=== PATIENT | male | born 1960 | race Caucasian/White ===

== ENCOUNTER 2017-12-20 10:25 | Emergency (ER) | payer OTHER ==
[2017-12-20] MEDS: SOD CHLORIDE 0.9% 1,000 ML IV (12:16)
[2017-12-20] MEDS: ONDANSETRON 4 MG INJ IV (12:17)
[2017-12-20] MEDS: morphine 4 MG/ML VIAL IV (12:17)
[2017-12-20 12:24] LABS: ADD MAN DIFF? NO
[2017-12-20 12:25] LABS: WHITE BLOOD COUNT 6.8 10^3/ul (4.8-10.8)
[2017-12-20 12:25] LABS: BASOPHILS % 0.4 % (0.0-2.0); EOSINOPHILS # 0.1 10^3/ul (0.0-0.5); EOSINOPHILS % 0.7 % (0.0-7.0); HEMATOCRIT 39.8 % (42.0-52.0); HEMOGLOBIN 13.8 g/dl (14.0-18.0); IMMATURE GRANS #M 0.02 10^3/ul; IMMATURE GRANS % (M) 0.3 %; LYMPHOCYTES # 1.3 10^3/ul (0.8-2.9); LYMPHOCYTES % 18.4 % (15.0-51.0); MEAN CORPUSCULAR HEMOGLOBIN 29.8 pg (29.0-33.0); MEAN CORPUSCULAR HGB CONC 34.7 g/dl (32.0-37.0); MEAN PLATELET VOLUME 9.4 fl (7.4-10.4); MONOCYTE # 0.3 10^3/ul (0.3-0.9); MONOCYTES % 4.4 % (0.0-11.0); NEUTROPHIL # 5.2 10^3/ul (1.6-7.5); NEUTROPHILS % 75.8 % (39.0-77.0); PLATELET COUNT 238 10^3/UL (140-415); RED BLOOD COUNT 4.63 10^6/ul (4.70-6.10); RED CELL DISTRIBUTION WIDTH 13.6 % (11.5-14.5)
[2017-12-20 12:45] LABS: ALANINE AMINOTRANSFERASE 41 IU/L (13-69); ALBUMIN 4.5 g/dl (3.3-4.9); ALBUMIN/GLOBULIN RATIO 1.18; ALKALINE PHOSPHATASE 76 IU/L (42-121); ANION GAP 17 (8-16); ASPARTATE AMINO TRANSFERASE 33 IU/L (15-46); BILIRUBIN,INDIRECT 0.9 mg/dl (0-1.1); BILIRUBIN,TOTAL 0.9 mg/dl (0.2-1.3); BLOOD UREA NITROGEN 12 mg/dl (7-20); CALCIUM 9.6 mg/dl (8.4-10.2); CARBON DIOXIDE 25 mmol/L (21-31); CHLORIDE 98 mmol/L (97-110); CREATININE 0.61 mg/dl (0.61-1.24); GLUCOSE 233 mg/dl (70-220); LIPASE 602 U/L (23-300); POTASSIUM 4.3 mmol/L (3.5-5.1); SODIUM 136 mmol/L (135-144); TOTAL PROTEIN 8.3 g/dl (6.1-8.1)
[2017-12-20 12:57] LABS: TROPONIN-I < 0.010 ng/ml (0.000-0.120)
== END 2017-12-20 14:57 | disposition home or self-care (01) ==
LOC: E/R 10:25
DX: K85.20 Alcohol induced acute pancreatitis without necrosis or infection (principal); I10 Essential (primary) hypertension; E11.9 Type 2 diabetes mellitus without complications; F17.210 Nicotine dependence, cigarettes, uncomplicated; Z79.84 Long term (current) use of oral hypoglycemic drugs
CPT/HCPCS: 36415; 76705; 80053; 83690; 84484; 85025; 93005; 96361; 96374; 96375; 99285-25

== ENCOUNTER 2018-09-12 18:57 | Emergency (ER) | payer OTHER ==
[2018-09-12 20:05] LABS: ADD MAN DIFF? NO
[2018-09-12] MEDS: LIDOCAINE/MYLANTA 40 ML BTL PO (20:07)
[2018-09-12] MEDS: morphine 2 MG INJ IV (20:07)
[2018-09-12] MEDS: ONDANSETRON 4 MG INJ IV (20:07)
[2018-09-12 20:10] LABS: BASOPHIL # 0.1 10^3/ul (0.0-0.1); BASOPHILS % 1.4 % (0.0-2.0); EOSINOPHILS # 0.1 10^3/ul (0.0-0.5); EOSINOPHILS % 1.3 % (0.0-7.0); HEMOGLOBIN 14.6 g/dl (14.0-18.0); LYMPHOCYTES # 3.6 10^3/ul (0.8-2.9); LYMPHOCYTES % 50.8 % (15.0-51.0); MEAN CORPUSCULAR HEMOGLOBIN 28.3 pg (29.0-33.0); MEAN CORPUSCULAR HGB CONC 34.8 g/dl (32.0-37.0); MEAN CORPUSCULAR VOLUME 81.6 fl (82.0-101.0); MEAN PLATELET VOLUME 9.5 fl (7.4-10.4); MONOCYTE # 0.5 10^3/ul (0.3-0.9); MONOCYTES % 6.4 % (0.0-11.0); NEUTROPHIL # 2.8 10^3/ul (1.6-7.5); NEUTROPHILS % 39.7 % (39.0-77.0); PLATELET COUNT 350 10^3/UL (140-415); RED BLOOD COUNT 5.15 10^6/ul (4.70-6.10); RED CELL DISTRIBUTION WIDTH 12.7 % (11.5-14.5)
[2018-09-12 20:29] LABS: ALANINE AMINOTRANSFERASE 40 IU/L (13-69); ALBUMIN 4.7 g/dl (3.3-4.9); ALKALINE PHOSPHATASE 105 IU/L (42-121); ANION GAP 20 (5-13); ASPARTATE AMINO TRANSFERASE 69 IU/L (15-46); BILIRUBIN,INDIRECT 0.3 mg/dl (0-1.1); BILIRUBIN,TOTAL 0.3 mg/dl (0.2-1.3); CARBON DIOXIDE 21 mmol/L (21-31); CHLORIDE 96 mmol/L (97-110); CREATININE 0.94 mg/dl (0.61-1.24); Estimated GFR > 60 mL/min (>60); GLUCOSE 395 mg/dl (70-220); LIPASE 172 U/L (23-300); POTASSIUM 4.5 mmol/L (3.5-5.1); SODIUM 137 mmol/L (135-144); TOTAL PROTEIN 8.3 g/dl (6.1-8.1)
[2018-09-12 20:31] LABS: BLOOD UREA NITROGEN 17 mg/dl (7-20)
[2018-09-12] MEDS: morphine 4 MG/ML VIAL IV (21:37)
[2018-09-12] MEDS: INSULIN LISPRO 100 UNIT/ML VIAL SC (22:45)
[2018-09-12] MEDS ORDERED: ACCU-CHEK XX (23:00)
== END 2018-09-12 22:56 | disposition home or self-care (01) ==
LOC: E/R 18:57
DX: F10.10 Alcohol abuse, uncomplicated (principal); E11.65 Type 2 diabetes mellitus with hyperglycemia; I10 Essential (primary) hypertension; Z79.82 Long term (current) use of aspirin; Z79.84 Long term (current) use of oral hypoglycemic drugs; Z87.891 Personal history of nicotine dependence
CPT/HCPCS: 36415; 80053; 80307; 82962; 83690; 85025; 93005; 96372; 96374; 96375; 96376; 99284-25

== ENCOUNTER 2018-09-14 07:45 | Emergency (ER) | payer OTHER ==
[2018-09-14 09:00] LABS: ADD MAN DIFF? NO
[2018-09-14] MEDS: SOD CHLORIDE 0.9% 1,000 ML IV (09:02)
[2018-09-14] MEDS: ONDANSETRON 4 MG INJ IV (09:04)
[2018-09-14 09:07] LABS: WHITE BLOOD COUNT 7.2 10^3/ul (4.8-10.8)
[2018-09-14 09:07] LABS: BASOPHILS % 0.6 % (0.0-2.0); EOSINOPHILS # 0.1 10^3/ul (0.0-0.5); EOSINOPHILS % 1.9 % (0.0-7.0); HEMATOCRIT 39.3 % (42.0-52.0); HEMOGLOBIN 13.4 g/dl (14.0-18.0); LYMPHOCYTES # 1.1 10^3/ul (0.8-2.9); LYMPHOCYTES % 15.5 % (15.0-51.0); MEAN CORPUSCULAR HEMOGLOBIN 28.1 pg (29.0-33.0); MEAN CORPUSCULAR HGB CONC 34.1 g/dl (32.0-37.0); MEAN CORPUSCULAR VOLUME 82.4 fl (82.0-101.0); MEAN PLATELET VOLUME 9.5 fl (7.4-10.4); MONOCYTE # 0.4 10^3/ul (0.3-0.9); MONOCYTES % 5.4 % (0.0-11.0); NEUTROPHIL # 5.5 10^3/ul (1.6-7.5); NEUTROPHILS % 76.5 % (39.0-77.0); PLATELET COUNT 213 10^3/UL (140-415); RED BLOOD COUNT 4.77 10^6/ul (4.70-6.10); RED CELL DISTRIBUTION WIDTH 12.7 % (11.5-14.5)
[2018-09-14 09:19] LABS: MODE ROOM AIR; MetHgb Venous 0.2 %; Sample Type Blood venous; Site VENOUS LINE; Venous COHb 0.7 %; Venous Fraction OxyHgb 66.7 %; Venous Oxygen Sat 67.3 mmHG (55.0-75.0); Venous Total Hemglobin 13.7 g/dl
[2018-09-14 09:23] LABS: ANION GAP 10 (5-13); BLOOD UREA NITROGEN 19 mg/dl (7-20); CALCIUM 8.8 mg/dl (8.4-10.2); CARBON DIOXIDE 27 mmol/L (21-31); CHLORIDE 98 mmol/L (97-110); CREATININE 0.81 mg/dl (0.61-1.24); Estimated GFR > 60 mL/min (>60); GLUCOSE 257 mg/dl (70-220); MAGNESIUM 2.3 mg/dl (1.7-2.5); SODIUM 135 mmol/L (135-144)
[2018-09-14] MEDS: BELLADONNA/PHENOBARBITAL TAB PO (09:34)
[2018-09-14] MEDS: LIDOCAINE/MYLANTA 40 ML BTL PO (09:34)
[2018-09-14] MEDS: FAMOTIDINE 20 MG INJ IV (09:34)
[2018-09-14] MEDS: morphine 4 MG/ML VIAL IV ×2 (09:35→11:42)
[2018-09-14 10:02] LABS: ALANINE AMINOTRANSFERASE 50 IU/L (13-69); ALBUMIN 4.2 g/dl (3.3-4.9); ALKALINE PHOSPHATASE 99 IU/L (42-121); ASPARTATE AMINO TRANSFERASE 58 IU/L (15-46); BILIRUBIN,INDIRECT 0.7 mg/dl (0-1.1); BILIRUBIN,TOTAL 0.7 mg/dl (0.2-1.3); LIPASE 604 U/L (23-300); TOTAL PROTEIN 7.3 g/dl (6.1-8.1)
[2018-09-14 10:06] LABS: ETHANOL < 10.0 mg/dl (0-0)
== END 2018-09-14 12:37 | disposition home or self-care (01) ==
LOC: E/R 07:45
DX: D64.9 Anemia, unspecified (principal); I10 Essential (primary) hypertension; K85.20 Alcohol induced acute pancreatitis without necrosis or infection; E11.65 Type 2 diabetes mellitus with hyperglycemia; K83.8 Other specified diseases of biliary tract; Z79.4 Long term (current) use of insulin; Z79.82 Long term (current) use of aspirin
CPT/HCPCS: 36415; 71045; 76705; 80048; 80076; 80307; 82803; 82962; 83690; 83735; 84100; 85025; 96374; 96375; 96376; 99285-25

== ENCOUNTER 2018-10-10 05:44 | Emergency (ER) | payer OTHER ==
[2018-10-10] MEDS: KETOROLAC 30 MG INJ IV (06:40)
[2018-10-10] MEDS: ONDANSETRON 4 MG INJ IV (06:40)
[2018-10-10] MEDS: SOD CHLORIDE 0.9% 1,000 ML IV (06:44)
[2018-10-10 06:52] LABS: ADD MAN DIFF? NO
[2018-10-10 06:54] LABS: BASOPHIL # 0.1 10^3/ul (0.0-0.1); EOSINOPHILS # 0.1 10^3/ul (0.0-0.5); EOSINOPHILS % 0.7 % (0.0-7.0); HEMATOCRIT 42.1 % (42.0-52.0); HEMOGLOBIN 14.5 g/dl (14.0-18.0); LYMPHOCYTES # 1.8 10^3/ul (0.8-2.9); LYMPHOCYTES % 25.5 % (15.0-51.0); MEAN CORPUSCULAR HGB CONC 34.4 g/dl (32.0-37.0); MEAN CORPUSCULAR VOLUME 81.3 fl (82.0-101.0); MONOCYTE # 0.5 10^3/ul (0.3-0.9); MONOCYTES % 7.6 % (0.0-11.0); NEUTROPHIL # 4.6 10^3/ul (1.6-7.5); NEUTROPHILS % 64.9 % (39.0-77.0); PLATELET COUNT 272 10^3/UL (140-415); RED BLOOD COUNT 5.18 10^6/ul (4.70-6.10); RED CELL DISTRIBUTION WIDTH 13.2 % (11.5-14.5)
[2018-10-10 06:54] LABS: WHITE BLOOD COUNT 7.1 10^3/ul (4.8-10.8)
[2018-10-10 06:56] LABS: ADD UMIC NO; UR ASCORBIC ACID NEGATIVE (NEGATIVE); UR BILIRUBIN (Dip) NEGATIVE (NEGATIVE); UR BLOOD (Dip) NEGATIVE (NEGATIVE); UR CLARITY CLEAR (CLEAR); UR COLOR STRAW (YELLOW); UR GLUCOSE (Dip) 3+ mg/dL (NEGATIVE); UR KETONES (Dip) NEGATIVE (NEGATIVE); UR LEUKOCYTE ESTERASE (Dip) NEGATIVE Leu/ul (NEGATIVE); UR NITRITE (Dip) NEGATIVE (NEGATIVE); UR SPECIFIC GRAVITY (Dip) 1.005 (1.003-1.030); UR TOTAL PROTEIN (Dip) NEGATIVE (NEGATIVE); UR UROBILINOGEN (Dip) NEGATIVE (NEGATIVE)
[2018-10-10 07:18] LABS: ALANINE AMINOTRANSFERASE 30 IU/L (13-69); ALBUMIN 4.5 g/dl (3.3-4.9); ALBUMIN/GLOBULIN RATIO 1.36; ALKALINE PHOSPHATASE 83 IU/L (42-121); ANION GAP 17 (5-13); ASPARTATE AMINO TRANSFERASE 36 IU/L (15-46); BILIRUBIN,INDIRECT 0.5 mg/dl (0-1.1); BILIRUBIN,TOTAL 0.5 mg/dl (0.2-1.3); BLOOD UREA NITROGEN 13 mg/dl (7-20); CALCIUM 8.5 mg/dl (8.4-10.2); CARBON DIOXIDE 24 mmol/L (21-31); CHLORIDE 93 mmol/L (97-110); Estimated GFR > 60 mL/min (>60); GLUCOSE 285 mg/dl (70-220); LIPASE 36 U/L (23-300); POTASSIUM 4.1 mmol/L (3.5-5.1); SODIUM 134 mmol/L (135-144); TOTAL PROTEIN 7.8 g/dl (6.1-8.1)
[2018-10-10] MEDS: morphine 4 MG/ML VIAL IV (07:27)
[2018-10-10 07:30] LABS: TROPONIN-I < 0.012 ng/ml (0.000-0.120)
[2018-10-10] MEDS: IOHEXOL 300MG/ML 150 ML BTL (07:58)
[2018-10-10] MEDS: SOD CHLORIDE 0.9% 100 ML (07:58)
== END 2018-10-10 08:51 | disposition home or self-care (01) ==
LOC: FTE 05:44
DX: R10.13 Epigastric pain (principal); E11.9 Type 2 diabetes mellitus without complications; I10 Essential (primary) hypertension; Z79.4 Long term (current) use of insulin; Z79.82 Long term (current) use of aspirin
CPT/HCPCS: 36415; 74177; 76705; 80053; 81003; 82962; 83690; 84484; 85025; 93005; 96361; 96374; 96375; 99285-25

== ENCOUNTER 2018-10-30 06:40 | Emergency (ER) | payer OTHER ==
[2018-10-30] MEDS: LIDOCAINE/MYLANTA 40 ML BTL PO (07:08)
[2018-10-30] MEDS: morphine 4 MG/ML VIAL IV (07:08)
[2018-10-30] MEDS: ONDANSETRON 4 MG INJ IV (07:08)
[2018-10-30 07:11] LABS: ADD MAN DIFF? NO; BASOPHIL # 0.1 10^3/ul (0.0-0.1); BASOPHILS % 1.6 % (0.0-2.0); EOSINOPHILS # 0.1 10^3/ul (0.0-0.5); EOSINOPHILS % 1.1 % (0.0-7.0); HEMATOCRIT 41.7 % (42.0-52.0); HEMOGLOBIN 14.2 g/dl (14.0-18.0); LYMPHOCYTES # 2.8 10^3/ul (0.8-2.9); LYMPHOCYTES % 45.6 % (15.0-51.0); MEAN CORPUSCULAR HGB CONC 34.1 g/dl (32.0-37.0); MEAN CORPUSCULAR VOLUME 82.2 fl (82.0-101.0); MEAN PLATELET VOLUME 8.8 fl (7.4-10.4); MONOCYTE # 0.4 10^3/ul (0.3-0.9); MONOCYTES % 6.7 % (0.0-11.0); NEUTROPHIL # 2.7 10^3/ul (1.6-7.5); NEUTROPHILS % 44.5 % (39.0-77.0); PLATELET COUNT 339 10^3/UL (140-415); RED BLOOD COUNT 5.07 10^6/ul (4.70-6.10); RED CELL DISTRIBUTION WIDTH 13.2 % (11.5-14.5)
[2018-10-30 07:11] LABS: WHITE BLOOD COUNT 6.1 10^3/ul (4.8-10.8)
[2018-10-30 07:19] LABS: ALANINE AMINOTRANSFERASE 43 IU/L (13-69); ALBUMIN 4.6 g/dl (3.3-4.9); ALBUMIN/GLOBULIN RATIO 1.21; ALKALINE PHOSPHATASE 81 IU/L (42-121); ANION GAP 15 (5-13); ASPARTATE AMINO TRANSFERASE 61 IU/L (15-46); BILIRUBIN,INDIRECT 0.5 mg/dl (0-1.1); BILIRUBIN,TOTAL 0.5 mg/dl (0.2-1.3); BLOOD UREA NITROGEN 18 mg/dl (7-20); CALCIUM 8.7 mg/dl (8.4-10.2); CARBON DIOXIDE 23 mmol/L (21-31); CHLORIDE 99 mmol/L (97-110); CREATININE 1.03 mg/dl (0.61-1.24); Estimated GFR > 60 mL/min (>60); GLUCOSE 229 mg/dl (70-220); LIPASE 67 U/L (23-300); POTASSIUM 4.1 mmol/L (3.5-5.1); SODIUM 137 mmol/L (135-144); TOTAL PROTEIN 8.4 g/dl (6.1-8.1)
[2018-10-30] MEDS: PANTOPRAZOLE 40 MG INJ IV (07:23)
[2018-10-30 07:30] LABS: TROPONIN-I < 0.012 ng/ml (0.000-0.120)
[2018-10-30] MEDS: HYDROmorphONE 2 MG/ML SYG IV (07:56)
[2018-10-30 08:11] LABS: ADD UMIC NO; UR ASCORBIC ACID NEGATIVE (NEGATIVE); UR BILIRUBIN (Dip) NEGATIVE (NEGATIVE); UR BLOOD (Dip) NEGATIVE (NEGATIVE); UR CLARITY CLEAR (CLEAR); UR COLOR COLORLESS (YELLOW); UR GLUCOSE (Dip) 1+ mg/dL (NEGATIVE); UR KETONES (Dip) NEGATIVE (NEGATIVE); UR LEUKOCYTE ESTERASE (Dip) NEGATIVE Leu/ul (NEGATIVE); UR NITRITE (Dip) NEGATIVE (NEGATIVE); UR RBC 0 /HPF (0-5); UR SPECIFIC GRAVITY (Dip) 1.003 (1.003-1.030); UR TOTAL PROTEIN (Dip) NEGATIVE (NEGATIVE); UR UROBILINOGEN (Dip) NEGATIVE (NEGATIVE); UR WBC 0 /HPF (0-5)
== END 2018-10-30 08:17 | disposition home or self-care (01) ==
LOC: E/R 06:40
DX: R10.13 Epigastric pain (principal); I10 Essential (primary) hypertension; E11.9 Type 2 diabetes mellitus without complications; F10.10 Alcohol abuse, uncomplicated; Z79.4 Long term (current) use of insulin; Z79.82 Long term (current) use of aspirin
CPT/HCPCS: 36415; 80053; 81003; 83690; 84484; 85025; 93005; 96374; 96375; 99284-25

== ENCOUNTER 2018-10-30 17:09 | Emergency (ER) | payer OTHER ==
[2018-10-30] MEDS: LIDOCAINE/MYLANTA 40 ML BTL PO (19:11)
[2018-10-30] MEDS: FAMOTIDINE 20 MG TAB PO (19:12)
[2018-10-30] MEDS: METOCLOPRAMIDE 10 MG INJ IV (19:12)
== END 2018-10-30 20:38 | disposition home or self-care (01) ==
LOC: E/R 17:09
DX: R10.13 Epigastric pain (principal); I10 Essential (primary) hypertension; E11.9 Type 2 diabetes mellitus without complications; R11.2 Nausea with vomiting, unspecified; Z79.82 Long term (current) use of aspirin; Z79.84 Long term (current) use of oral hypoglycemic drugs
CPT/HCPCS: 96374; 99284-25

== ENCOUNTER → 2018-11-17 | Emergency (ER) | payer OTHER ==
[2018-11-17 12:43] LABS: ADD MAN DIFF? NO
[2018-11-17 12:45] LABS: BASOPHIL # 0.1 10^3/ul (0.0-0.1); BASOPHILS % 1.9 % (0.0-2.0); EOSINOPHILS % 0.6 % (0.0-7.0); HEMATOCRIT 43.8 % (42.0-52.0); HEMOGLOBIN 15.1 g/dl (14.0-18.0); LYMPHOCYTES # 2.7 10^3/ul (0.8-2.9); LYMPHOCYTES % 50.1 % (15.0-51.0); MEAN CORPUSCULAR HEMOGLOBIN 28.3 pg (29.0-33.0); MEAN CORPUSCULAR HGB CONC 34.5 g/dl (32.0-37.0); MEAN CORPUSCULAR VOLUME 82.2 fl (82.0-101.0); MEAN PLATELET VOLUME 8.8 fl (7.4-10.4); MONOCYTE # 0.4 10^3/ul (0.3-0.9); MONOCYTES % 6.7 % (0.0-11.0); NEUTROPHIL # 2.2 10^3/ul (1.6-7.5); NEUTROPHILS % 40.1 % (39.0-77.0); PLATELET COUNT 309 10^3/UL (140-415); RED BLOOD COUNT 5.33 10^6/ul (4.70-6.10); RED CELL DISTRIBUTION WIDTH 13.7 % (11.5-14.5)
[2018-11-17 12:45] LABS: WHITE BLOOD COUNT 5.4 10^3/ul (4.8-10.8)
[2018-11-17] MEDS: HYDROmorphONE 1 MG/ML SYG IV ×2 (12:49→16:38)
[2018-11-17] MEDS: ONDANSETRON 4 MG INJ IV ×3 (12:49→16:38)
[2018-11-17] MEDS: SOD CHLORIDE 0.9% 1,000 ML IV (12:49)
[2018-11-17 12:50] LABS: ALANINE AMINOTRANSFERASE 25 IU/L (13-69); ALBUMIN 4.9 g/dl (3.3-4.9); ALBUMIN/GLOBULIN RATIO 1.25; ALKALINE PHOSPHATASE 74 IU/L (42-121); ANION GAP 17 (5-13); ASPARTATE AMINO TRANSFERASE 39 IU/L (15-46); BILIRUBIN,INDIRECT 0.4 mg/dl (0-1.1); BILIRUBIN,TOTAL 0.4 mg/dl (0.2-1.3); BLOOD UREA NITROGEN 12 mg/dl (7-20); CALCIUM 9.2 mg/dl (8.4-10.2); CARBON DIOXIDE 25 mmol/L (21-31); CHLORIDE 101 mmol/L (97-110); Estimated GFR > 60 mL/min (>60); GLUCOSE 162 mg/dl (70-220); LIPASE 56 U/L (23-300); POTASSIUM 4.3 mmol/L (3.5-5.1); SODIUM 143 mmol/L (135-144); TOTAL PROTEIN 8.8 g/dl (6.1-8.1)
[2018-11-17] MEDS: SOD CHLORIDE 0.9% 100 ML (15:08)
[2018-11-17] MEDS: IOHEXOL 300MG/ML 150 ML BTL (15:09)
[2018-11-17] MEDS: LIDOCAINE/MYLANTA 40 ML BTL PO (16:38)
[2018-11-17] MEDS: BELLADONNA/PHENOBARBITAL TAB PO (16:38)
== END | disposition home or self-care (01) ==
LOC: E/R 11:25
DX: R10.13 Epigastric pain (principal); I10 Essential (primary) hypertension; E11.9 Type 2 diabetes mellitus without complications; R11.0 Nausea; Z79.82 Long term (current) use of aspirin; Z79.4 Long term (current) use of insulin
CPT/HCPCS: 36415; 74177; 76705; 80053; 83690; 85025; 96374; 96375; 96376; 99285-25

== ENCOUNTER 2018-12-05 12:54 | Emergency (ER) | payer OTHER ==
[2018-12-05 13:31] LABS: ADD MAN DIFF? NO
[2018-12-05 13:32] LABS: WHITE BLOOD COUNT 9.7 10^3/ul (4.8-10.8)
[2018-12-05 13:32] LABS: BASOPHIL # 0.1 10^3/ul (0.0-0.1); BASOPHILS % 0.7 % (0.0-2.0); HEMOGLOBIN 15.8 g/dl (14.0-18.0); LYMPHOCYTES # 1.4 10^3/ul (0.8-2.9); LYMPHOCYTES % 14.3 % (15.0-51.0); MEAN CORPUSCULAR HEMOGLOBIN 28.8 pg (29.0-33.0); MEAN CORPUSCULAR HGB CONC 35.1 g/dl (32.0-37.0); MEAN PLATELET VOLUME 9.1 fl (7.4-10.4); MONOCYTE # 0.5 10^3/ul (0.3-0.9); MONOCYTES % 4.7 % (0.0-11.0); NEUTROPHIL # 7.7 10^3/ul (1.6-7.5); PLATELET COUNT 279 10^3/UL (140-415); RED BLOOD COUNT 5.49 10^6/ul (4.70-6.10); RED CELL DISTRIBUTION WIDTH 13.6 % (11.5-14.5)
[2018-12-05] MEDS: ONDANSETRON 4 MG INJ IV (13:46)
[2018-12-05] MEDS: morphine 4 MG/ML VIAL IV (13:48)
[2018-12-05 14:01] LABS: ALANINE AMINOTRANSFERASE 245 IU/L (13-69); ALBUMIN 4.3 g/dl (3.3-4.9); ALBUMIN/GLOBULIN RATIO 1.19; ALKALINE PHOSPHATASE 112 IU/L (42-121); ANION GAP 16 (5-13); ASPARTATE AMINO TRANSFERASE 441 IU/L (15-46); BILIRUBIN,INDIRECT 1.2 mg/dl (0-1.1); BILIRUBIN,TOTAL 1.2 mg/dl (0.2-1.3); BLOOD UREA NITROGEN 17 mg/dl (7-20); CALCIUM 8.2 mg/dl (8.4-10.2); CARBON DIOXIDE 21 mmol/L (21-31); CHLORIDE 95 mmol/L (97-110); CREATININE 0.83 mg/dl (0.61-1.24); Estimated GFR > 60 mL/min (>60); GLUCOSE 265 mg/dl (70-220); LIPASE 203 U/L (23-300); POTASSIUM 4.4 mmol/L (3.5-5.1); SODIUM 132 mmol/L (135-144); TOTAL PROTEIN 7.9 g/dl (6.1-8.1)
[2018-12-05] MEDS: LIDOCAINE/MYLANTA 40 ML BTL PO (14:07)
[2018-12-05] MEDS: PANTOPRAZOLE 40 MG INJ IV (14:07)
[2018-12-05] MEDS: LACTATED RINGER'S 1,000 ML IV (14:07)
[2018-12-05] MEDS: CHLORPROMAZINE 25 MG INJ IM (14:07)
[2018-12-05] MEDS: SOD CHLORIDE 0.9% 1,000 ML IV (14:08)
[2018-12-05 14:10] LABS: TROPONIN-I < 0.012 ng/ml (0.000-0.120)
[2018-12-05 15:44] LABS: INR 0.93; PARTIAL THROMBOPLASTIN TIME 28.7 Sec (23.0-35.0); PROTIME 12.6 Sec (11.9-14.9)
[2018-12-05] MEDS: HYDROCODONE/APAP (5/325) TAB PO (15:55)
== END 2018-12-05 16:16 | disposition home or self-care (01) ==
LOC: E/R 12:54
DX: K70.10 Alcoholic hepatitis without ascites (principal); K85.20 Alcohol induced acute pancreatitis without necrosis or infection; I10 Essential (primary) hypertension; E11.9 Type 2 diabetes mellitus without complications; Z79.4 Long term (current) use of insulin; Z79.82 Long term (current) use of aspirin
CPT/HCPCS: 36415; 71045; 76705; 80053; 80307; 82962; 83690; 84484; 85025; 85610; 85730; 93005; 96372; 96374; 96375; 99285-25

== ENCOUNTER 2018-12-06 06:33 | Inpatient (IN) | payer OTHER ==
[2018-12-06 07:10] LABS: ADD MAN DIFF? NO
[2018-12-06 07:12] LABS: BASOPHILS % 0.4 % (0.0-2.0); HEMATOCRIT 41.6 % (42.0-52.0); HEMOGLOBIN 14.2 g/dl (14.0-18.0); LYMPHOCYTES # 0.8 10^3/ul (0.8-2.9); LYMPHOCYTES % 9.5 % (15.0-51.0); MEAN CORPUSCULAR HEMOGLOBIN 28.7 pg (29.0-33.0); MEAN CORPUSCULAR HGB CONC 34.1 g/dl (32.0-37.0); MEAN CORPUSCULAR VOLUME 84.2 fl (82.0-101.0); MEAN PLATELET VOLUME 9.3 fl (7.4-10.4); MONOCYTE # 0.4 10^3/ul (0.3-0.9); MONOCYTES % 5.3 % (0.0-11.0); NEUTROPHIL # 6.7 10^3/ul (1.6-7.5); NEUTROPHILS % 84.3 % (39.0-77.0); PLATELET COUNT 163 10^3/UL (140-415); RED BLOOD COUNT 4.94 10^6/ul (4.70-6.10)
[2018-12-06] MEDS: ONDANSETRON 4 MG INJ IV ×2 (07:14→12:23)
[2018-12-06] MEDS: morphine 4 MG/ML VIAL IV ×3 (07:14→09:41)
[2018-12-06] MEDS: FAMOTIDINE 20 MG INJ IV (07:14)
[2018-12-06] MEDS: SOD CHLORIDE 0.9% 1,000 ML IV ×4 (07:15→20:22)
[2018-12-06 07:33] LABS: ALANINE AMINOTRANSFERASE 192 IU/L (13-69); ALBUMIN 3.7 g/dl (3.3-4.9); ALBUMIN/GLOBULIN RATIO 1.12; ALKALINE PHOSPHATASE 124 IU/L (42-121); ANION GAP 12 (5-13); ASPARTATE AMINO TRANSFERASE 190 IU/L (15-46); BILIRUBIN,INDIRECT 2.4 mg/dl (0-1.1); BILIRUBIN,TOTAL 2.5 mg/dl (0.2-1.3); BLOOD UREA NITROGEN 13 mg/dl (7-20); CALCIUM 7.8 mg/dl (8.4-10.2); CARBON DIOXIDE 22 mmol/L (21-31); CHLORIDE 98 mmol/L (97-110); CREATININE 0.78 mg/dl (0.61-1.24); Estimated GFR > 60 mL/min (>60); GLUCOSE 239 mg/dl (70-220); POTASSIUM 3.8 mmol/L (3.5-5.1); SODIUM 132 mmol/L (135-144)
[2018-12-06 07:47] LABS: LIPASE 3071 U/L (23-300)
[2018-12-06] MEDS: IOHEXOL 300MG/ML 150 ML BTL (08:22)
[2018-12-06] MEDS: SOD CHLORIDE 0.9% 100 ML (08:22)
[2018-12-06] MEDS ORDERED: ACETAMINOPHEN 325 MG TAB PO (09:00)
[2018-12-06] MEDS ORDERED: MAGNESIUM HYDROXIDE 30ML CUP PO (11:30)
[2018-12-06] MEDS ORDERED: NACL 0.9% 3 ML SYG IV (11:30)
[2018-12-06] MEDS ORDERED: ONDANSETRON 4 MG INJ IV ×2 (11:30→16:30)
[2018-12-06] MEDS ORDERED: BISACODYL 10 MG SUPP PR (11:30)
[2018-12-06] MEDS: HYDROmorphONE 1 MG/ML SYG IV ×3 (12:24→23:46)
[2018-12-06] MEDS: GABAPENTIN 300 MG CAP PO ×2 (14:45→20:22)
[2018-12-06] MEDS: MEROPENEM 1 GM/50ML(PMX) 50 ML IVPB ×2 (14:46→23:46)
[2018-12-06] MEDS: morphine 2 MG INJ IV (15:52)
[2018-12-06] MEDS: hydrALAzine 20 MG INJ IV (19:50)
[2018-12-06] MEDS: ATORVASTATIN 80 MG TAB PO (20:15)
[2018-12-06] MEDS: BENAZEPRIL 10 MG TAB PO (20:15)
[2018-12-06] MEDS: DICLOFENAC (EC) 75 MG TAB PO (20:15)
[2018-12-07] MEDS ORDERED: METOPROLOL 25 MG TAB (03:35)
[2018-12-07] MEDS: METOPROLOL 25 MG TAB PO ×2 (03:40→03:41)
[2018-12-07] MEDS: morphine 2 MG INJ IV ×4 (03:41→21:21)
[2018-12-07] MEDS ORDERED: PANTOPRAZOLE 40 MG INJ (04:49)
[2018-12-07] MEDS: HYDROmorphONE 1 MG/ML SYG IV ×4 (04:56→19:57)
[2018-12-07] MEDS: SOD CHLORIDE 0.9% 1,000 ML IV (04:58)
[2018-12-07] MEDS: PANTOPRAZOLE 40 MG INJ IV (05:00)
[2018-12-07 06:00] LABS: ABNORMAL IP MESSAGE 1; HEMATOCRIT 42.4 % (42.0-52.0); HEMOGLOBIN 14.5 g/dl (14.0-18.0); MEAN CORPUSCULAR HEMOGLOBIN 29.2 pg (29.0-33.0); MEAN CORPUSCULAR HGB CONC 34.2 g/dl (32.0-37.0); MEAN CORPUSCULAR VOLUME 85.3 fl (82.0-101.0); MEAN PLATELET VOLUME 9.9 fl (7.4-10.4); PLATELET COUNT 150 10^3/UL (140-415); POSITIVE DIFF @See below; RED BLOOD COUNT 4.97 10^6/ul (4.70-6.10); RED CELL DISTRIBUTION WIDTH 14.4 % (11.5-14.5)
[2018-12-07 06:00] LABS: WHITE BLOOD COUNT 12.7 10^3/ul (4.8-10.8)
[2018-12-07 06:11] LABS: ADD MAN DIFF? YES
[2018-12-07 06:42] LABS: FREE THYROXINE INDEX (Calc) 2.59 ug/ml (0.65-3.89); T3 UPTAKE 43.1 % (23.5-40.5)
[2018-12-07 06:43] LABS: ALANINE AMINOTRANSFERASE 122 IU/L (13-69); ALBUMIN 3.2 g/dl (3.3-4.9); ALBUMIN/GLOBULIN RATIO 1.23; ALKALINE PHOSPHATASE 113 IU/L (42-121); ANION GAP 16 (5-13); ASPARTATE AMINO TRANSFERASE 78 IU/L (15-46); BILIRUBIN,INDIRECT 0.9 mg/dl (0-1.1); BILIRUBIN,TOTAL 0.9 mg/dl (0.2-1.3); BLOOD UREA NITROGEN 14 mg/dl (7-20); CALCIUM 7.4 mg/dl (8.4-10.2); CARBON DIOXIDE 19 mmol/L (21-31); CHLORIDE 100 mmol/L (97-110); CHOL/HDL RATIO 4.2 RATIO; CREATININE 0.68 mg/dl (0.61-1.24); Estimated GFR > 60 mL/min (>60); GLUCOSE 241 mg/dl (70-220); HDL CHOLESTEROL 23 mg/dl (28-71); PHOSPHORUS 2.6 mg/dl (2.5-4.9); POTASSIUM 4.2 mmol/L (3.5-5.1); SODIUM 135 mmol/L (135-144); TOTAL PROTEIN 5.8 g/dl (6.1-8.1)
[2018-12-07 07:42] LABS: BAND NEUTROPHILS #M 2.5 10^3/ul (0.0-0.6); BAND NEUTROPHILS % (M) 20 % (0-4); ERYTHROBLAST% (NRBC) (M) 1 % (0-0); LYMPHOCYTES #M 0.2 10^3/ul (0.8-2.9); LYMPHOCYTES % (M) 2 % (15-51); MONOCYTE #M 0.6 10^3/ul (0.3-0.9); MONOCYTES % (M) 5 % (0-11); PLATELET ESTIMATE NORMAL; REACTIVE LYMPHOCYTES #M 0.1 10^3/ul (0.0-0.0); REACTIVE LYMPHOCYTES% (M) 1 % (0-0); SEG NEUT #M 9.5 10^3/ul (1.6-7.5); SEGMENTED NEUTROPHILS (M) % 72 % (39-77); SMUDGE%M 16 % (0-0)
[2018-12-07] MEDS: BENAZEPRIL 10 MG TAB PO ×2 (08:01→21:00)
[2018-12-07] MEDS: DICLOFENAC (EC) 75 MG TAB PO ×2 (08:01→21:00)
[2018-12-07] MEDS: GABAPENTIN 300 MG CAP PO ×4 (08:01→21:00)
[2018-12-07] MEDS: ASPIRIN (EC) 81 MG TAB PO (08:01)
[2018-12-07 08:25] LABS: HEMOGLOBIN A1C 7.8 % (0-5.9)
[2018-12-07] MEDS ORDERED: INSULIN GLARGINE [LANtus] 3 ML PEN SC (09:00)
[2018-12-07 09:44] LABS: CHOLESTEROL 98 mg/dl (100-200); TRIGLYCERIDES 397 mg/dl (0-149)
[2018-12-07] MEDS: INSULIN GLARGINE [LANTus] (100 UNITS/ML) SYG SC (09:48)
[2018-12-07 09:55] LABS: LIPASE 1099 U/L (23-300)
[2018-12-07] MEDS ORDERED: LABETALOL HCL 20MG INJ IV (12:30)
[2018-12-07] MEDS: MEROPENEM 1 GM/50ML(PMX) 50 ML IVPB ×2 (12:43→23:15)
[2018-12-07] MEDS: LACTATED RINGER'S 1,000 ML IV ×2 (12:47→23:16)
[2018-12-07] MEDS: hydrALAzine 20 MG INJ IV (20:04)
[2018-12-07] MEDS: ATORVASTATIN 80 MG TAB PO (21:00)
[2018-12-08] MEDS: HYDROmorphONE 1 MG/ML SYG IV ×3 (01:50→20:20)
[2018-12-08] MEDS: ACETAMINOPHEN 1000MG/100ML IV 100 ML IVPB (02:49)
[2018-12-08] MEDS: PANTOPRAZOLE 40 MG INJ IV (05:22)
[2018-12-08] MEDS: morphine 2 MG INJ IV ×2 (05:23→16:21)
[2018-12-08 07:57] LABS: ADD MAN DIFF? NO
[2018-12-08 08:01] LABS: BASOPHILS % 0.4 % (0.0-2.0); EOSINOPHILS % 0.3 % (0.0-7.0); HEMATOCRIT 33.6 % (42.0-52.0); HEMOGLOBIN 11.6 g/dl (14.0-18.0); LYMPHOCYTES # 0.9 10^3/ul (0.8-2.9); LYMPHOCYTES % 9.1 % (15.0-51.0); MEAN CORPUSCULAR HEMOGLOBIN 29.2 pg (29.0-33.0); MEAN CORPUSCULAR HGB CONC 34.5 g/dl (32.0-37.0); MEAN CORPUSCULAR VOLUME 84.6 fl (82.0-101.0); MEAN PLATELET VOLUME 9.8 fl (7.4-10.4); MONOCYTE # 0.8 10^3/ul (0.3-0.9); MONOCYTES % 7.6 % (0.0-11.0); NEUTROPHIL # 8.1 10^3/ul (1.6-7.5); NEUTROPHILS % 80.9 % (39.0-77.0); PLATELET COUNT 139 10^3/UL (140-415); RED BLOOD COUNT 3.97 10^6/ul (4.70-6.10); RED CELL DISTRIBUTION WIDTH 14.6 % (11.5-14.5)
[2018-12-08 08:09] LABS: ALANINE AMINOTRANSFERASE 80 IU/L (13-69); ALBUMIN 2.8 g/dl (3.3-4.9); ALBUMIN/GLOBULIN RATIO 0.96; ALKALINE PHOSPHATASE 112 IU/L (42-121); ANION GAP 9 (5-13); ASPARTATE AMINO TRANSFERASE 57 IU/L (15-46); BILIRUBIN,INDIRECT 1.3 mg/dl (0-1.1); BLOOD UREA NITROGEN 14 mg/dl (7-20); CALCIUM 7.5 mg/dl (8.4-10.2); CARBON DIOXIDE 25 mmol/L (21-31); CHLORIDE 97 mmol/L (97-110); Estimated GFR > 60 mL/min (>60); GLUCOSE 138 mg/dl (70-220); POTASSIUM 3.5 mmol/L (3.5-5.1); SODIUM 131 mmol/L (135-144); TOTAL PROTEIN 5.7 g/dl (6.1-8.1)
[2018-12-08] MEDS: GABAPENTIN 300 MG CAP PO ×4 (08:27→20:14)
[2018-12-08] MEDS: BENAZEPRIL 10 MG TAB PO ×3 (08:28→20:14)
[2018-12-08] MEDS: DICLOFENAC (EC) 75 MG TAB PO ×3 (08:28→20:14)
[2018-12-08] MEDS: ASPIRIN (EC) 81 MG TAB PO ×2 (08:28→10:33)
[2018-12-08] MEDS: DOCUSATE SODIUM 100 MG CAP PO ×2 (08:28→10:33)
[2018-12-08] MEDS: INSULIN GLARGINE [LANTus] (100 UNITS/ML) SYG SC (08:30)
[2018-12-08] MEDS: LACTATED RINGER'S 1,000 ML IV ×3 (10:33→22:46)
[2018-12-08] MEDS: MEROPENEM 1 GM/50ML(PMX) 50 ML IVPB ×2 (10:43→22:46)
[2018-12-08] MEDS: ATORVASTATIN 80 MG TAB PO (20:14)
[2018-12-09] MEDS ORDERED: PANTOPRAZOLE (EC) 40 MG TAB PO (04:06)
[2018-12-09] MEDS: HYDROmorphONE 1 MG/ML SYG IV ×2 (04:22→18:43)
[2018-12-09] MEDS: PANTOPRAZOLE (EC) 40 MG TAB PO (05:31)
[2018-12-09 07:23] LABS: ADD MAN DIFF? NO
[2018-12-09 07:24] LABS: BASOPHILS % 0.6 % (0.0-2.0); EOSINOPHILS # 0.1 10^3/ul (0.0-0.5); EOSINOPHILS % 1.4 % (0.0-7.0); HEMATOCRIT 31.1 % (42.0-52.0); HEMOGLOBIN 10.8 g/dl (14.0-18.0); MEAN CORPUSCULAR HEMOGLOBIN 29.7 pg (29.0-33.0); MEAN CORPUSCULAR HGB CONC 34.7 g/dl (32.0-37.0); MEAN CORPUSCULAR VOLUME 85.4 fl (82.0-101.0); MEAN PLATELET VOLUME 9.1 fl (7.4-10.4); MONOCYTE # 0.8 10^3/ul (0.3-0.9); MONOCYTES % 11.7 % (0.0-11.0); NEUTROPHIL # 4.8 10^3/ul (1.6-7.5); NEUTROPHILS % 69.2 % (39.0-77.0); PLATELET COUNT 127 10^3/UL (140-415); RED BLOOD COUNT 3.64 10^6/ul (4.70-6.10); RED CELL DISTRIBUTION WIDTH 15.2 % (11.5-14.5)
[2018-12-09 08:01] LABS: ANION GAP 6 (5-13); BLOOD UREA NITROGEN 11 mg/dl (7-20); CALCIUM 7.7 mg/dl (8.4-10.2); CARBON DIOXIDE 29 mmol/L (21-31); CHLORIDE 97 mmol/L (97-110); CREATININE 0.58 mg/dl (0.61-1.24); Estimated GFR > 60 mL/min (>60); GLUCOSE 150 mg/dl (70-220); POTASSIUM 3.6 mmol/L (3.5-5.1); SODIUM 132 mmol/L (135-144)
[2018-12-09 08:02] LABS: LIPASE 118 U/L (23-300)
[2018-12-09] MEDS: ASPIRIN (EC) 81 MG TAB PO (09:19)
[2018-12-09] MEDS: DICLOFENAC (EC) 75 MG TAB PO ×2 (09:19→21:00)
[2018-12-09] MEDS: BENAZEPRIL 10 MG TAB PO ×2 (09:19→21:01)
[2018-12-09] MEDS: GABAPENTIN 300 MG CAP PO ×3 (09:19→21:00)
[2018-12-09] MEDS: morphine 2 MG INJ IV (09:20)
[2018-12-09] MEDS: MEROPENEM 1 GM/50ML(PMX) 50 ML IVPB ×2 (10:37→23:03)
[2018-12-09] MEDS: LACTATED RINGER'S 1,000 ML IV ×2 (10:37→23:03)
[2018-12-09 11:20] LABS: ALANINE AMINOTRANSFERASE 140 IU/L (13-69); ALBUMIN 2.4 g/dl (3.3-4.9); ALKALINE PHOSPHATASE 397 IU/L (42-121); ASPARTATE AMINO TRANSFERASE 225 IU/L (15-46); BILIRUBIN,INDIRECT 1.5 mg/dl (0-1.1); BILIRUBIN,TOTAL 5.6 mg/dl (0.2-1.3); TOTAL PROTEIN 4.6 g/dl (6.1-8.1)
[2018-12-09] MEDS: INSULIN GLARGINE [LANTus] (100 UNITS/ML) SYG SC (13:21)
[2018-12-09 14:12] LABS: HAAIG REFLEX REFLEX FILED
[2018-12-09 14:53] LABS: HEPATITIS B SURFACE ANTIGEN NEGATIVE (NEGATIVE)
[2018-12-09 15:11] LABS: HEPATITIS B CORE ANTIBODY NEGATIVE (NEGATIVE); HEPATITIS C VIRAL ANTIBODY NEGATIVE (NEGATIVE)
[2018-12-09] MEDS: ATORVASTATIN 80 MG TAB PO (21:00)
[2018-12-09] MEDS ORDERED: DEXTROSE 50% 50 ML SYRINGE IV ×2 (22:30)
[2018-12-09] MEDS ORDERED: GLUCOSE GEL 15 GRAM TUBE PO ×2 (22:30)
[2018-12-09] MEDS ORDERED: GLUCOSE GEL 15 GRAM TUBE BUCCAL (22:30)
[2018-12-09] MEDS ORDERED: GLUCAGON 1 MG INJ IM (22:30)
[2018-12-10] MEDS: ACCU-CHEK XX (02:00)
[2018-12-10] MEDS: hydrALAzine 20 MG INJ IV (02:05)
[2018-12-10] MEDS: PANTOPRAZOLE (EC) 40 MG TAB PO (05:23)
[2018-12-10] MEDS: ACETAMINOPHEN 325 MG TAB PO ×2 (05:42→20:35)
[2018-12-10 07:23] LABS: AMYLASE 33 U/L (11-123)
[2018-12-10 07:27] LABS: LIPASE 105 U/L (23-300)
[2018-12-10] MEDS: ASPIRIN (EC) 81 MG TAB PO (08:12)
[2018-12-10] MEDS: GABAPENTIN 300 MG CAP PO ×3 (08:12→20:30)
[2018-12-10] MEDS: BENAZEPRIL 10 MG TAB PO ×2 (08:12→20:31)
[2018-12-10] MEDS: DICLOFENAC (EC) 75 MG TAB PO ×2 (08:12→20:30)
[2018-12-10] MEDS: INSULIN ASPART [NOVOLOG] 3 ML PEN SC ×4 (08:16→20:28)
[2018-12-10] MEDS: INSULIN GLARGINE [LANTus] (100 UNITS/ML) SYG SC (08:17)
[2018-12-10] MEDS: LACTATED RINGER'S 1,000 ML IV ×2 (10:03→20:28)
[2018-12-10 10:33] LABS: ADD MAN DIFF? NO
[2018-12-10 10:34] LABS: WHITE BLOOD COUNT 6.2 10^3/ul (4.8-10.8)
[2018-12-10 10:34] LABS: BASOPHIL # 0.1 10^3/ul (0.0-0.1); BASOPHILS % 1.1 % (0.0-2.0); EOSINOPHILS # 0.1 10^3/ul (0.0-0.5); EOSINOPHILS % 1.1 % (0.0-7.0); HEMATOCRIT 34.2 % (42.0-52.0); HEMOGLOBIN 11.8 g/dl (14.0-18.0); LYMPHOCYTES # 0.9 10^3/ul (0.8-2.9); LYMPHOCYTES % 14.5 % (15.0-51.0); MEAN CORPUSCULAR HEMOGLOBIN 29.1 pg (29.0-33.0); MEAN CORPUSCULAR HGB CONC 34.5 g/dl (32.0-37.0); MEAN CORPUSCULAR VOLUME 84.4 fl (82.0-101.0); MEAN PLATELET VOLUME 9.6 fl (7.4-10.4); MONOCYTES % 16.5 % (0.0-11.0); NEUTROPHIL # 3.9 10^3/ul (1.6-7.5); NEUTROPHILS % 63.6 % (39.0-77.0); PLATELET COUNT 161 10^3/UL (140-415); RED BLOOD COUNT 4.05 10^6/ul (4.70-6.10); RED CELL DISTRIBUTION WIDTH 15.7 % (11.5-14.5)
[2018-12-10 10:41] LABS: ALANINE AMINOTRANSFERASE 293 IU/L (13-69); ALKALINE PHOSPHATASE 617 IU/L (42-121); ANION GAP 10 (5-13); ASPARTATE AMINO TRANSFERASE 481 IU/L (15-46); BILIRUBIN,INDIRECT 1.6 mg/dl (0-1.1); BLOOD UREA NITROGEN 8 mg/dl (7-20); CALCIUM 8.5 mg/dl (8.4-10.2); CARBON DIOXIDE 25 mmol/L (21-31); CHLORIDE 97 mmol/L (97-110); CREATININE 0.55 mg/dl (0.61-1.24); Estimated GFR > 60 mL/min (>60); GLUCOSE 138 mg/dl (70-220); POTASSIUM 3.2 mmol/L (3.5-5.1); SODIUM 132 mmol/L (135-144); TOTAL PROTEIN 6.3 g/dl (6.1-8.1)
[2018-12-10] MEDS: MEROPENEM 1 GM/50ML(PMX) 50 ML IVPB (11:13)
[2018-12-10] MEDS: HYDROmorphONE 1 MG/ML SYG IV (11:16)
[2018-12-10] MEDS: ATORVASTATIN 80 MG TAB PO (20:30)
[2018-12-11] MEDS: MEROPENEM 1 GM/50ML(PMX) 50 ML IVPB ×3 (00:05→23:17)
[2018-12-11] MEDS: HYDROmorphONE 1 MG/ML SYG IV (00:36)
[2018-12-11] MEDS: ACCU-CHEK XX (02:00)
[2018-12-11] MEDS: PANTOPRAZOLE (EC) 40 MG TAB PO (05:54)
[2018-12-11] MEDS: LACTATED RINGER'S 1,000 ML IV ×2 (06:00→16:27)
[2018-12-11 06:23] LABS: ADD MAN DIFF? NO
[2018-12-11 06:25] LABS: WHITE BLOOD COUNT 5.5 10^3/ul (4.8-10.8)
[2018-12-11 06:25] LABS: BASOPHIL # 0.1 10^3/ul (0.0-0.1); BASOPHILS % 1.3 % (0.0-2.0); EOSINOPHILS # 0.1 10^3/ul (0.0-0.5); EOSINOPHILS % 2.2 % (0.0-7.0); HEMATOCRIT 33.6 % (42.0-52.0); HEMOGLOBIN 11.6 g/dl (14.0-18.0); LYMPHOCYTES # 1.3 10^3/ul (0.8-2.9); LYMPHOCYTES % 22.7 % (15.0-51.0); MEAN CORPUSCULAR HEMOGLOBIN 29.1 pg (29.0-33.0); MEAN CORPUSCULAR HGB CONC 34.5 g/dl (32.0-37.0); MEAN CORPUSCULAR VOLUME 84.2 fl (82.0-101.0); MEAN PLATELET VOLUME 9.2 fl (7.4-10.4); MONOCYTES % 18.3 % (0.0-11.0); NEUTROPHIL # 2.8 10^3/ul (1.6-7.5); NEUTROPHILS % 50.8 % (39.0-77.0); PLATELET COUNT 154 10^3/UL (140-415); RED BLOOD COUNT 3.99 10^6/ul (4.70-6.10); RED CELL DISTRIBUTION WIDTH 16.4 % (11.5-14.5)
[2018-12-11 07:10] LABS: ALANINE AMINOTRANSFERASE 577 IU/L (13-69); ALBUMIN 2.9 g/dl (3.3-4.9); ALBUMIN/GLOBULIN RATIO 0.87; ALKALINE PHOSPHATASE 795 IU/L (42-121); ANION GAP 7 (5-13); BILIRUBIN,INDIRECT 1.2 mg/dl (0-1.1); BILIRUBIN,TOTAL 6.3 mg/dl (0.2-1.3); BLOOD UREA NITROGEN 8 mg/dl (7-20); CALCIUM 8.5 mg/dl (8.4-10.2); CARBON DIOXIDE 30 mmol/L (21-31); CHLORIDE 97 mmol/L (97-110); CREATININE 0.66 mg/dl (0.61-1.24); Estimated GFR > 60 mL/min (>60); GLUCOSE 136 mg/dl (70-220); POTASSIUM 3.6 mmol/L (3.5-5.1); SODIUM 134 mmol/L (135-144); TOTAL PROTEIN 6.2 g/dl (6.1-8.1)
[2018-12-11 07:16] LABS: ASPARTATE AMINO TRANSFERASE 991 IU/L (15-46)
[2018-12-11] MEDS: INSULIN ASPART [NOVOLOG] 3 ML PEN SC ×4 (08:00→21:46)
[2018-12-11] MEDS: GABAPENTIN 300 MG CAP PO ×3 (08:43→21:45)
[2018-12-11] MEDS: ASPIRIN (EC) 81 MG TAB PO (08:43)
[2018-12-11] MEDS: BENAZEPRIL 10 MG TAB PO ×2 (08:43→21:45)
[2018-12-11] MEDS: DICLOFENAC (EC) 75 MG TAB PO ×2 (08:43→21:45)
[2018-12-11] MEDS: INSULIN GLARGINE [LANTus] (100 UNITS/ML) SYG SC (08:43)
[2018-12-11 20:15] LABS: HEPATITIS B SURFACE ANTIBODY NEGATIVE (NEGATIVE)
[2018-12-12] MEDS: INSULIN ASPART [NOVOLOG] 3 ML PEN SC ×2 (01:00→05:00)
[2018-12-12] MEDS: ACCU-CHEK XX (02:00)
[2018-12-12] MEDS: LACTATED RINGER'S 1,000 ML IV (02:19)
[2018-12-12] MEDS: PANTOPRAZOLE (EC) 40 MG TAB PO (06:00)
[2018-12-12 08:32] LABS: ABNORMAL IP MESSAGE 1; HEMATOCRIT 35.6 % (42.0-52.0); HEMOGLOBIN 12.2 g/dl (14.0-18.0); MEAN CORPUSCULAR HEMOGLOBIN 28.9 pg (29.0-33.0); MEAN CORPUSCULAR HGB CONC 34.3 g/dl (32.0-37.0); MEAN CORPUSCULAR VOLUME 84.4 fl (82.0-101.0); MEAN PLATELET VOLUME 9.5 fl (7.4-10.4); PLATELET COUNT 206 10^3/UL (140-415); POSITIVE DIFF @See below; RED BLOOD COUNT 4.22 10^6/ul (4.70-6.10); RED CELL DISTRIBUTION WIDTH 16.7 % (11.5-14.5)
[2018-12-12 08:32] LABS: WHITE BLOOD COUNT 5.9 10^3/ul (4.8-10.8)
[2018-12-12 08:50] LABS: ADD MAN DIFF? YES
[2018-12-12] MEDS: DICLOFENAC (EC) 75 MG TAB PO ×2 (08:54→22:11)
[2018-12-12] MEDS: GABAPENTIN 300 MG CAP PO ×3 (08:54→22:12)
[2018-12-12] MEDS: BENAZEPRIL 10 MG TAB PO ×2 (08:54→22:12)
[2018-12-12] MEDS: ASPIRIN (EC) 81 MG TAB PO (08:54)
[2018-12-12] MEDS: INSULIN GLARGINE [LANTus] (100 UNITS/ML) SYG SC (08:55)
[2018-12-12 09:27] LABS: MAGNESIUM 1.9 mg/dl (1.7-2.5)
[2018-12-12 09:27] LABS: PHOSPHORUS 3.7 mg/dl (2.5-4.9)
[2018-12-12 09:53] LABS: ALANINE AMINOTRANSFERASE 840 IU/L (13-69); ALBUMIN 3.3 g/dl (3.3-4.9); ALBUMIN/GLOBULIN RATIO 0.94; ALKALINE PHOSPHATASE 1337 IU/L (42-121); ANION GAP 9 (5-13); BILIRUBIN,INDIRECT 1.2 mg/dl (0-1.1); BILIRUBIN,TOTAL 6.5 mg/dl (0.2-1.3); BLOOD UREA NITROGEN 6 mg/dl (7-20); CALCIUM 8.7 mg/dl (8.4-10.2); CARBON DIOXIDE 30 mmol/L (21-31); CHLORIDE 98 mmol/L (97-110); CREATININE 0.72 mg/dl (0.61-1.24); Estimated GFR > 60 mL/min (>60); GLUCOSE 158 mg/dl (70-220); POTASSIUM 4.1 mmol/L (3.5-5.1); SODIUM 137 mmol/L (135-144); TOTAL PROTEIN 6.8 g/dl (6.1-8.1)
[2018-12-12 10:04] LABS: ANISOCYTOSIS 2+ (0-0); BAND NEUTROPHILS #M 0.2 10^3/ul (0.0-0.6); BAND NEUTROPHILS % (M) 4 % (0-4); EOSINOPHILS % (M) 4 % (0-7); GIANT THROMBO% (M) 1 % (0-0); LYMPHOCYTES #M 1.2 10^3/ul (0.8-2.9); LYMPHOCYTES % (M) 22 % (15-51); METAMYELOCYTES #M 0.1 10^3/ul (0.0-0.0); METAMYELOCYTES %M 2 % (0-0); MONOCYTE #M 0.5 10^3/ul (0.3-0.9); MONOCYTES % (M) 9 % (0-11); MYELOCYTES #M 0.2 10^3/ul (0.0-0.0); MYELOCYTES % (M) 4 % (0-0); PLATELET ESTIMATE NORMAL; POIKILOCYTOSIS 1+ (0-0); POLYCHROMASIA 1+ (0-0); PROMYELOCYTES #M 0.1 10^3/ul (0-0); PROMYELOCYTES % (M) 2 % (0-0); REACTIVE LYMPHOCYTES% (M) 1 % (0-0); SEG NEUT #M 3.1 10^3/ul (1.6-7.5); SEGMENTED NEUTROPHILS (M) % 53 % (39-77); SMUDGE%M 6 % (0-0); TARGET CELLS 1+ (0-0)
[2018-12-12 10:06] LABS: ASPARTATE AMINO TRANSFERASE 1249 IU/L (15-46)
[2018-12-12] MEDS: MEROPENEM 1 GM/50ML(PMX) 50 ML IVPB ×2 (11:23→22:21)
[2018-12-12] MEDS ORDERED: INSULIN ASPART [NOVOLOG] 3 ML PEN SC (11:30)
[2018-12-12] MEDS: Insulin NOVOLOG SS MILD Algorithm (SS with meals and bedtime) SC ×3 (12:19→22:13)
[2018-12-12 12:28] LABS: MITOCHONDRIAL TB NEGATIVE (NEGATIVE); SMOOTH MUSCLE AB SCREEN NEGATIVE (NEGATIVE)
[2018-12-12 14:52] LABS: ANA SCREEN NEGATIVE (NEGATIVE)
[2018-12-12 17:23] LABS: INR 1.06; PROTIME 13.9 Sec (11.9-14.9); PT RATIO 1.1
[2018-12-13] MEDS: INSULIN ASPART [NOVOLOG] 3 ML PEN SC ×6 (01:08→20:34)
[2018-12-13] MEDS: ACCU-CHEK XX (01:50)
[2018-12-13] MEDS: PANTOPRAZOLE (EC) 40 MG TAB PO (05:22)
[2018-12-13 06:26] LABS: ADD MAN DIFF? NO
[2018-12-13 06:33] LABS: BASOPHILS % 0.6 % (0.0-2.0); EOSINOPHILS # 0.1 10^3/ul (0.0-0.5); EOSINOPHILS % 2.2 % (0.0-7.0); HEMATOCRIT 38.1 % (42.0-52.0); HEMOGLOBIN 12.8 g/dl (14.0-18.0); LYMPHOCYTES # 1.3 10^3/ul (0.8-2.9); LYMPHOCYTES % 21.1 % (15.0-51.0); MEAN CORPUSCULAR HEMOGLOBIN 28.3 pg (29.0-33.0); MEAN CORPUSCULAR HGB CONC 33.6 g/dl (32.0-37.0); MEAN CORPUSCULAR VOLUME 84.3 fl (82.0-101.0); MEAN PLATELET VOLUME 9.2 fl (7.4-10.4); MONOCYTE # 0.8 10^3/ul (0.3-0.9); MONOCYTES % 13.2 % (0.0-11.0); NEUTROPHIL # 3.6 10^3/ul (1.6-7.5); NEUTROPHILS % 56.9 % (39.0-77.0); PLATELET COUNT 230 10^3/UL (140-415); RED BLOOD COUNT 4.52 10^6/ul (4.70-6.10); RED CELL DISTRIBUTION WIDTH 16.6 % (11.5-14.5)
[2018-12-13 06:33] LABS: WHITE BLOOD COUNT 6.3 10^3/ul (4.8-10.8)
[2018-12-13 06:34] LABS: ABNORMAL IP MESSAGE 1; POSITIVE DIFF @See below
[2018-12-13 06:54] LABS: MAGNESIUM 1.8 mg/dl (1.7-2.5)
[2018-12-13 06:54] LABS: PHOSPHORUS 3.4 mg/dl (2.5-4.9)
[2018-12-13 06:56] LABS: ALANINE AMINOTRANSFERASE 978 IU/L (13-69); ALBUMIN 3.4 g/dl (3.3-4.9); ALBUMIN/GLOBULIN RATIO 0.85; ANION GAP 11 (5-13); BILIRUBIN,INDIRECT 1.2 mg/dl (0-1.1); BILIRUBIN,TOTAL 7.1 mg/dl (0.2-1.3); BLOOD UREA NITROGEN 7 mg/dl (7-20); CALCIUM 9.1 mg/dl (8.4-10.2); CARBON DIOXIDE 26 mmol/L (21-31); CHLORIDE 97 mmol/L (97-110); CREATININE 0.64 mg/dl (0.61-1.24); Estimated GFR > 60 mL/min (>60); GLUCOSE 246 mg/dl (70-220); POTASSIUM 4.3 mmol/L (3.5-5.1); SODIUM 134 mmol/L (135-144); TOTAL PROTEIN 7.4 g/dl (6.1-8.1)
[2018-12-13 07:06] LABS: ALKALINE PHOSPHATASE 1478 IU/L (42-121); ASPARTATE AMINO TRANSFERASE 1309 IU/L (15-46)
[2018-12-13 07:07] LABS: PROTIME 14.3 Sec (11.9-14.9); PT RATIO 1.1
[2018-12-13 07:57] LABS: ANISOCYTOSIS 1+ (0-0); BAND NEUTROPHILS #M 0.4 10^3/ul (0.0-0.6); BAND NEUTROPHILS % (M) 7 % (0-4); BASOPHIL #M 0.1 10^3/ul (0.0-0.0); BASOPHILS % (M) 2 % (0-2); EOSINOPHILS % (M) 2 % (0-7); GIANT THROMBO% (M) 1 % (0-0); LYMPHOCYTES #M 1.7 10^3/ul (0.8-2.9); LYMPHOCYTES % (M) 28 % (15-51); MONOCYTE #M 0.2 10^3/ul (0.3-0.9); MONOCYTES % (M) 4 % (0-11); MYELOCYTES % (M) 1 % (0-0); PLATELET ESTIMATE NORMAL; REACTIVE LYMPHOCYTES% (M) 1 % (0-0); SEG NEUT #M 3.5 10^3/ul (1.6-7.5); SEGMENTED NEUTROPHILS (M) % 55 % (39-77)
[2018-12-13] MEDS: Insulin NOVOLOG SS MILD Algorithm (SS with meals and bedtime) SC ×4 (08:59→20:30)
[2018-12-13] MEDS: ASPIRIN (EC) 81 MG TAB PO (09:00)
[2018-12-13] MEDS: INSULIN GLARGINE [LANTus] (100 UNITS/ML) SYG SC ×2 (09:00→12:31)
[2018-12-13] MEDS: BENAZEPRIL 10 MG TAB PO ×2 (09:00→20:27)
[2018-12-13] MEDS: GABAPENTIN 300 MG CAP PO ×3 (09:00→20:27)
[2018-12-13] MEDS: DICLOFENAC (EC) 75 MG TAB PO ×2 (09:00→20:27)
[2018-12-13] MEDS: MEROPENEM 1 GM/50ML(PMX) 50 ML IVPB ×2 (11:40→22:48)
[2018-12-13] MEDS ORDERED: IOHEXOL 300MG/ML 30 ML BTL (16:12)
[2018-12-13] MEDS: INDOMETHACIN 50 MG SUPP PR (17:00)
[2018-12-13] MEDS ORDERED: FENTAnyl 50 MCG/ML VIAL IV ×6 (17:30→18:30)
[2018-12-13] MEDS ORDERED: MEPERIDINE 25 MG INJ IV ×2 (17:30→18:30)
[2018-12-13] MEDS ORDERED: MIDAZOLAM 1 MG/ML 2 ML INJ IV ×2 (17:30→18:30)
[2018-12-13] MEDS ORDERED: TRIMETHOBENZAMIDE 100 MG/ML VIAL IM ×2 (17:30→18:30)
[2018-12-13] MEDS ORDERED: EPHEDrine 25 MG/5 ML SYG IV ×2 (17:30→18:30)
[2018-12-13] MEDS ORDERED: hydrALAzine 20 MG INJ IV ×2 (17:30→18:30)
[2018-12-13] MEDS ORDERED: OXYCODONE/ACETAMINOPHEN (5/325) TAB PO ×4 (17:30→18:30)
[2018-12-13] MEDS ORDERED: IPRATROPIUM (NEB) 0.5 MG/2.5 ML AMP HHN ×2 (17:30→18:30)
[2018-12-13] MEDS ORDERED: ONDANSETRON 4 MG INJ IV ×2 (17:30→18:30)
[2018-12-13] MEDS ORDERED: ALBUTEROL 0.083% (NEB) 2.5 MG/3 ML AMP HHN ×2 (17:30→18:30)
[2018-12-13] MEDS ORDERED: DIPHENHYDRAMINE 50 MG INJ IV ×2 (17:30→18:30)
[2018-12-13] MEDS ORDERED: LABETALOL HCL 20MG INJ IV ×2 (17:30→18:30)
[2018-12-13] MEDS ORDERED: HYDROmorphONE 1 MG/5 ML IV SYRINGE IV ×6 (17:30→18:30)
[2018-12-13] MEDS ORDERED: CEFAZOLIN 1 GM INJ (17:44)
[2018-12-13] MEDS ORDERED: GLYCOPYRROLATE 0.4 MG INJ (17:44)
[2018-12-13] MEDS ORDERED: PROPOFOL 20 ML (17:44)
[2018-12-13] MEDS ORDERED: ROCURONIUM 50 MG INJ (17:44)
[2018-12-13] MEDS ORDERED: NEOSTIGMINE 3 MG/3 ML SYRINGE (17:44)
[2018-12-13] MEDS ORDERED: ONDANSETRON 4 MG INJ (17:46)
[2018-12-13] MEDS ORDERED: MIDAZOLAM 1 MG/ML 2 ML INJ (17:46)
[2018-12-13] MEDS ORDERED: DEXAMETHASONE 4 MG/ML 5 ML INJ (17:46)
[2018-12-13] MEDS ORDERED: FENTAnyl 50 MCG/ML VIAL (17:46)
[2018-12-13] MEDS ORDERED: SUGAMMADEX SODIUM 200 MG/2 ML VIAL IV (18:14)
[2018-12-13 19:16] LABS: CARCINOEMBRYONIC ANTIGEN 1.3 ng/ml (0.0-5.0)
[2018-12-14] MEDS: ACCU-CHEK XX (02:00)
[2018-12-14] MEDS: PANTOPRAZOLE (EC) 40 MG TAB PO (05:47)
[2018-12-14 06:56] LABS: HEMATOCRIT 38.8 % (42.0-52.0); MEAN CORPUSCULAR HEMOGLOBIN 28.4 pg (29.0-33.0); MEAN CORPUSCULAR HGB CONC 33.5 g/dl (32.0-37.0); MEAN CORPUSCULAR VOLUME 84.9 fl (82.0-101.0); MEAN PLATELET VOLUME 9.8 fl (7.4-10.4); PLATELET COUNT 282 10^3/UL (140-415); RED BLOOD COUNT 4.57 10^6/ul (4.70-6.10)
[2018-12-14 06:57] LABS: ABNORMAL IP MESSAGE 1; POSITIVE DIFF @See below
[2018-12-14 07:05] LABS: ADD MAN DIFF? YES
[2018-12-14 07:23] LABS: MAGNESIUM 1.8 mg/dl (1.7-2.5)
[2018-12-14 07:23] LABS: PHOSPHORUS 4.1 mg/dl (2.5-4.9)
[2018-12-14 07:24] LABS: ALANINE AMINOTRANSFERASE 949 IU/L (13-69); ALBUMIN 3.4 g/dl (3.3-4.9); ALBUMIN/GLOBULIN RATIO 0.85; ANION GAP 11 (5-13); BILIRUBIN,INDIRECT 1.5 mg/dl (0-1.1); BILIRUBIN,TOTAL 2.6 mg/dl (0.2-1.3); BLOOD UREA NITROGEN 16 mg/dl (7-20); CALCIUM 8.6 mg/dl (8.4-10.2); CARBON DIOXIDE 25 mmol/L (21-31); CHLORIDE 94 mmol/L (97-110); CREATININE 0.76 mg/dl (0.61-1.24); Estimated GFR > 60 mL/min (>60); GLUCOSE 273 mg/dl (70-220); POTASSIUM 4.9 mmol/L (3.5-5.1); SODIUM 130 mmol/L (135-144); TOTAL PROTEIN 7.4 g/dl (6.1-8.1)
[2018-12-14 07:36] LABS: ALKALINE PHOSPHATASE 1492 IU/L (42-121); ASPARTATE AMINO TRANSFERASE 778 IU/L (15-46)
[2018-12-14] MEDS: ASPIRIN (EC) 81 MG TAB PO (08:00)
[2018-12-14] MEDS: BENAZEPRIL 10 MG TAB PO ×2 (08:00→21:27)
[2018-12-14] MEDS: GABAPENTIN 300 MG CAP PO ×3 (08:00→21:27)
[2018-12-14] MEDS: DICLOFENAC (EC) 75 MG TAB PO ×2 (08:00→21:27)
[2018-12-14] MEDS: Insulin NOVOLOG SS MILD Algorithm (SS with meals and bedtime) SC ×4 (08:00→21:28)
[2018-12-14] MEDS: INSULIN GLARGINE [LANTus] (100 UNITS/ML) SYG SC (09:43)
[2018-12-14] MEDS: MEROPENEM 1 GM/50ML(PMX) 50 ML IVPB ×2 (10:32→23:00)
[2018-12-14 10:43] LABS: ANISOCYTOSIS 2+ (0-0); BAND NEUTROPHILS #M 0.5 10^3/ul (0.0-0.6); BAND NEUTROPHILS % (M) 7 % (0-4); LYMPHOCYTES #M 0.6 10^3/ul (0.8-2.9); LYMPHOCYTES % (M) 8 % (15-51); PLATELET ESTIMATE NORMAL; POIKILOCYTOSIS 1+ (0-0); PROMYELOCYTES % (M) 1 % (0-0); SEG NEUT #M 6.8 10^3/ul (1.6-7.5); SEGMENTED NEUTROPHILS (M) % 84 % (39-77); TARGET CELLS 1+ (0-0); TOXIC GRANULATION 1+ (0-0)
[2018-12-14] MEDS: INSULIN ASPART [NOVOLOG] 3 ML PEN SC ×2 (17:20→22:09)
[2018-12-14 22:15] LABS: GLUCOSE 399 mg/dl (70-220)
[2018-12-15] MEDS: ACCU-CHEK XX ×2 (00:04→02:00)
[2018-12-15] MEDS: INSULIN ASPART [NOVOLOG] 3 ML PEN SC ×8 (02:50→20:56)
[2018-12-15] MEDS: PANTOPRAZOLE (EC) 40 MG TAB PO (05:25)
[2018-12-15 06:07] LABS: ADD MAN DIFF? NO
[2018-12-15 06:13] LABS: BASOPHIL # 0.1 10^3/ul (0.0-0.1); BASOPHILS % 0.6 % (0.0-2.0); EOSINOPHILS # 0.1 10^3/ul (0.0-0.5); EOSINOPHILS % 0.7 % (0.0-7.0); HEMATOCRIT 33.9 % (42.0-52.0); HEMOGLOBIN 11.3 g/dl (14.0-18.0); LYMPHOCYTES # 2.3 10^3/ul (0.8-2.9); LYMPHOCYTES % 25.2 % (15.0-51.0); MEAN CORPUSCULAR HEMOGLOBIN 29.4 pg (29.0-33.0); MEAN CORPUSCULAR HGB CONC 33.3 g/dl (32.0-37.0); MEAN CORPUSCULAR VOLUME 88.1 fl (82.0-101.0); MEAN PLATELET VOLUME 9.4 fl (7.4-10.4); MONOCYTE # 0.7 10^3/ul (0.3-0.9); MONOCYTES % 7.7 % (0.0-11.0); NEUTROPHIL # 5.5 10^3/ul (1.6-7.5); NEUTROPHILS % 61.4 % (39.0-77.0); PLATELET COUNT 340 10^3/UL (140-415); RED BLOOD COUNT 3.85 10^6/ul (4.70-6.10); RED CELL DISTRIBUTION WIDTH 15.8 % (11.5-14.5)
[2018-12-15 06:44] LABS: PHOSPHORUS 2.6 mg/dl (2.5-4.9)
[2018-12-15 06:44] LABS: MAGNESIUM 2.1 mg/dl (1.7-2.5)
[2018-12-15 06:53] LABS: ALANINE AMINOTRANSFERASE 577 IU/L (13-69); ALBUMIN 3.2 g/dl (3.3-4.9); ALBUMIN/GLOBULIN RATIO 0.94; ALKALINE PHOSPHATASE 1193 IU/L (42-121); ANION GAP 6 (5-13); ASPARTATE AMINO TRANSFERASE 162 IU/L (15-46); BILIRUBIN,INDIRECT 1.5 mg/dl (0-1.1); BILIRUBIN,TOTAL 1.5 mg/dl (0.2-1.3); BLOOD UREA NITROGEN 18 mg/dl (7-20); CALCIUM 8.5 mg/dl (8.4-10.2); CARBON DIOXIDE 30 mmol/L (21-31); CHLORIDE 96 mmol/L (97-110); CREATININE 0.75 mg/dl (0.61-1.24); Estimated GFR > 60 mL/min (>60); GLUCOSE 250 mg/dl (70-220); POTASSIUM 4.5 mmol/L (3.5-5.1); SODIUM 132 mmol/L (135-144); TOTAL PROTEIN 6.6 g/dl (6.1-8.1)
[2018-12-15] MEDS: INSULIN GLARGINE [LANTus] (100 UNITS/ML) SYG SC (08:07)
[2018-12-15] MEDS: DICLOFENAC (EC) 75 MG TAB PO ×2 (08:08→20:49)
[2018-12-15] MEDS: GABAPENTIN 300 MG CAP PO ×3 (08:08→20:49)
[2018-12-15] MEDS: ASPIRIN (EC) 81 MG TAB PO (08:08)
[2018-12-15] MEDS: BENAZEPRIL 10 MG TAB PO ×2 (08:11→20:50)
[2018-12-15] MEDS: MEROPENEM 1 GM/50ML(PMX) 50 ML IVPB ×2 (10:27→22:40)
[2018-12-15] MEDS ORDERED: IOHEXOL 14.3 MG(I)/ML (ADULT) BTL PO (18:00)
[2018-12-15] MEDS: BARIUM SULF 2% 450 ML BTL (BERRY SMOOTHIE) PO (22:36)
[2018-12-15] MEDS: IOHEXOL 14.3 MG(I)/ML (ADULT) BTL PO (22:52)
[2018-12-16] MEDS: IOHEXOL 300MG/ML 150 ML BTL (01:12)
[2018-12-16] MEDS: SOD CHLORIDE 0.9% 100 ML (01:12)
[2018-12-16] MEDS: ACCU-CHEK XX (02:00)
[2018-12-16 06:21] LABS: ADD MAN DIFF? NO
[2018-12-16 06:33] LABS: WHITE BLOOD COUNT 8.5 10^3/ul (4.8-10.8)
[2018-12-16 06:33] LABS: BASOPHIL # 0.1 10^3/ul (0.0-0.1); BASOPHILS % 1.1 % (0.0-2.0); EOSINOPHILS # 0.1 10^3/ul (0.0-0.5); EOSINOPHILS % 1.7 % (0.0-7.0); HEMATOCRIT 35.5 % (42.0-52.0); HEMOGLOBIN 11.6 g/dl (14.0-18.0); LYMPHOCYTES # 2.4 10^3/ul (0.8-2.9); LYMPHOCYTES % 28.4 % (15.0-51.0); MEAN CORPUSCULAR HEMOGLOBIN 28.8 pg (29.0-33.0); MEAN CORPUSCULAR HGB CONC 32.7 g/dl (32.0-37.0); MEAN CORPUSCULAR VOLUME 88.1 fl (82.0-101.0); MEAN PLATELET VOLUME 9.4 fl (7.4-10.4); MONOCYTE # 0.6 10^3/ul (0.3-0.9); MONOCYTES % 6.8 % (0.0-11.0); NEUTROPHILS % 58.7 % (39.0-77.0); PLATELET COUNT 400 10^3/UL (140-415); RED BLOOD COUNT 4.03 10^6/ul (4.70-6.10)
[2018-12-16 06:58] LABS: PHOSPHORUS 3.9 mg/dl (2.5-4.9)
[2018-12-16 06:58] LABS: MAGNESIUM 1.9 mg/dl (1.7-2.5)
[2018-12-16 07:18] LABS: ALANINE AMINOTRANSFERASE 454 IU/L (13-69); ALBUMIN 3.3 g/dl (3.3-4.9); ALBUMIN/GLOBULIN RATIO 0.97; ALKALINE PHOSPHATASE 1010 IU/L (42-121); ANION GAP 6 (5-13); ASPARTATE AMINO TRANSFERASE 143 IU/L (15-46); BILIRUBIN,INDIRECT 1.2 mg/dl (0-1.1); BILIRUBIN,TOTAL 1.2 mg/dl (0.2-1.3); BLOOD UREA NITROGEN 13 mg/dl (7-20); CALCIUM 8.7 mg/dl (8.4-10.2); CARBON DIOXIDE 29 mmol/L (21-31); CHLORIDE 98 mmol/L (97-110); CREATININE 0.67 mg/dl (0.61-1.24); Estimated GFR > 60 mL/min (>60); GLUCOSE 201 mg/dl (70-220); SODIUM 133 mmol/L (135-144); TOTAL PROTEIN 6.7 g/dl (6.1-8.1)
[2018-12-16 07:19] LABS: POTASSIUM 4.3 mmol/L (3.5-5.1)
[2018-12-16] MEDS: PANTOPRAZOLE (EC) 40 MG TAB PO (07:24)
[2018-12-16] MEDS: INSULIN ASPART [NOVOLOG] 3 ML PEN SC ×7 (08:41→20:41)
[2018-12-16] MEDS: INSULIN GLARGINE [LANTus] (100 UNITS/ML) SYG SC (08:43)
[2018-12-16] MEDS: GABAPENTIN 300 MG CAP PO ×3 (08:45→20:38)
[2018-12-16] MEDS: DICLOFENAC (EC) 75 MG TAB PO ×2 (08:45→20:38)
[2018-12-16] MEDS: BENAZEPRIL 10 MG TAB PO ×2 (08:47→20:39)
[2018-12-16] MEDS: ASPIRIN (EC) 81 MG TAB PO (08:47)
[2018-12-16] MEDS: MEROPENEM 1 GM/50ML(PMX) 50 ML IVPB ×2 (11:24→23:24)
[2018-12-17] MEDS: ACCU-CHEK XX (02:00)
[2018-12-17] MEDS: PANTOPRAZOLE (EC) 40 MG TAB PO (06:16)
[2018-12-17 07:09] LABS: HEMATOCRIT 38.4 % (42.0-52.0); HEMOGLOBIN 12.3 g/dl (14.0-18.0); MEAN CORPUSCULAR HEMOGLOBIN 29.4 pg (29.0-33.0); MEAN CORPUSCULAR VOLUME 91.9 fl (82.0-101.0); MEAN PLATELET VOLUME 9.3 fl (7.4-10.4); PLATELET COUNT 513 10^3/UL (140-415); POSITIVE DIFF @See below; RED BLOOD COUNT 4.18 10^6/ul (4.70-6.10); RED CELL DISTRIBUTION WIDTH 15.5 % (11.5-14.5)
[2018-12-17 07:09] LABS: WHITE BLOOD COUNT 9.5 10^3/ul (4.8-10.8)
[2018-12-17 07:29] LABS: PHOSPHORUS 4.9 mg/dl (2.5-4.9)
[2018-12-17 07:29] LABS: MAGNESIUM 1.9 mg/dl (1.7-2.5)
[2018-12-17 07:30] LABS: ALANINE AMINOTRANSFERASE 393 IU/L (13-69); ALBUMIN 3.6 g/dl (3.3-4.9); ALBUMIN/GLOBULIN RATIO 1.16; ALKALINE PHOSPHATASE 843 IU/L (42-121); ANION GAP 9 (5-13); ASPARTATE AMINO TRANSFERASE 85 IU/L (15-46); BILIRUBIN,INDIRECT 1.4 mg/dl (0-1.1); BILIRUBIN,TOTAL 1.4 mg/dl (0.2-1.3); BLOOD UREA NITROGEN 15 mg/dl (7-20); CALCIUM 9.5 mg/dl (8.4-10.2); CARBON DIOXIDE 30 mmol/L (21-31); CHLORIDE 95 mmol/L (97-110); CREATININE 0.74 mg/dl (0.61-1.24); Estimated GFR > 60 mL/min (>60); GLUCOSE 211 mg/dl (70-220); POTASSIUM 5.2 mmol/L (3.5-5.1); SODIUM 134 mmol/L (135-144); TOTAL PROTEIN 6.7 g/dl (6.1-8.1)
[2018-12-17 07:49] LABS: ADD MAN DIFF? YES
[2018-12-17] MEDS: INSULIN GLARGINE [LANTus] (100 UNITS/ML) SYG SC ×2 (08:13→21:46)
[2018-12-17] MEDS: INSULIN ASPART [NOVOLOG] 3 ML PEN SC ×7 (08:15→21:44)
[2018-12-17] MEDS: DICLOFENAC (EC) 75 MG TAB PO ×2 (09:05→21:43)
[2018-12-17] MEDS: GABAPENTIN 300 MG CAP PO ×3 (09:05→21:42)
[2018-12-17] MEDS: ASPIRIN (EC) 81 MG TAB PO (09:05)
[2018-12-17] MEDS: BENAZEPRIL 10 MG TAB PO ×2 (09:06→21:42)
[2018-12-17 10:22] LABS: ANISOCYTOSIS 1+ (0-0); BASOPHIL #M 0.1 10^3/ul (0.0-0.0); BASOPHILS % (M) 2 % (0-2); EOSINOPHILS % (M) 3 % (0-7); LYMPHOCYTES #M 1.4 10^3/ul (0.8-2.9); LYMPHOCYTES % (M) 15 % (15-51); MONOCYTE #M 0.4 10^3/ul (0.3-0.9); MONOCYTES % (M) 5 % (0-11); PLATELET ESTIMATE INCREASED; REACTIVE LYMPHOCYTES #M 0.1 10^3/ul (0.0-0.0); REACTIVE LYMPHOCYTES% (M) 2 % (0-0); SEGMENTED NEUTROPHILS (M) % 73 % (39-77); SMUDGE%M 22 % (0-0)
[2018-12-17] MEDS: MEROPENEM 1 GM/50ML(PMX) 50 ML IVPB (11:33)
[2018-12-17] MEDS: INDOMETHACIN 50 MG SUPP PR (16:30)
[2018-12-18] MEDS: SOD CHLORIDE 0.9% 1,000 ML IV (00:41)
[2018-12-18] MEDS: MEROPENEM 1 GM/50ML(PMX) 50 ML IVPB ×3 (00:41→23:49)
[2018-12-18] MEDS: INSULIN ASPART [NOVOLOG] 3 ML PEN SC ×9 (00:45→22:13)
[2018-12-18] MEDS: ACCU-CHEK XX (00:52)
[2018-12-18] MEDS: PANTOPRAZOLE (EC) 40 MG TAB PO (05:11)
[2018-12-18 06:23] LABS: ADD MAN DIFF? NO
[2018-12-18 06:30] LABS: WHITE BLOOD COUNT 7.7 10^3/ul (4.8-10.8)
[2018-12-18 06:30] LABS: BASOPHIL # 0.1 10^3/ul (0.0-0.1); BASOPHILS % 1.7 % (0.0-2.0); EOSINOPHILS # 0.2 10^3/ul (0.0-0.5); EOSINOPHILS % 3.1 % (0.0-7.0); HEMATOCRIT 35.8 % (42.0-52.0); HEMOGLOBIN 11.7 g/dl (14.0-18.0); LYMPHOCYTES # 1.8 10^3/ul (0.8-2.9); LYMPHOCYTES % 22.9 % (15.0-51.0); MEAN CORPUSCULAR HEMOGLOBIN 29.4 pg (29.0-33.0); MEAN CORPUSCULAR HGB CONC 32.7 g/dl (32.0-37.0); MEAN CORPUSCULAR VOLUME 89.9 fl (82.0-101.0); MEAN PLATELET VOLUME 9.2 fl (7.4-10.4); MONOCYTE # 0.5 10^3/ul (0.3-0.9); MONOCYTES % 6.7 % (0.0-11.0); NEUTROPHIL # 4.8 10^3/ul (1.6-7.5); NEUTROPHILS % 62.2 % (39.0-77.0); PLATELET COUNT 533 10^3/UL (140-415); RED BLOOD COUNT 3.98 10^6/ul (4.70-6.10)
[2018-12-18 07:00] LABS: ALANINE AMINOTRANSFERASE 298 IU/L (13-69); ALBUMIN 3.7 g/dl (3.3-4.9); ALBUMIN/GLOBULIN RATIO 1.02; ALKALINE PHOSPHATASE 722 IU/L (42-121); ANION GAP 9 (5-13); ASPARTATE AMINO TRANSFERASE 63 IU/L (15-46); BILIRUBIN,INDIRECT 1.1 mg/dl (0-1.1); BILIRUBIN,TOTAL 1.1 mg/dl (0.2-1.3); BLOOD UREA NITROGEN 17 mg/dl (7-20); CALCIUM 9.5 mg/dl (8.4-10.2); CARBON DIOXIDE 31 mmol/L (21-31); CHLORIDE 94 mmol/L (97-110); CREATININE 0.79 mg/dl (0.61-1.24); Estimated GFR > 60 mL/min (>60); GLUCOSE 157 mg/dl (70-220); POTASSIUM 4.7 mmol/L (3.5-5.1); SODIUM 134 mmol/L (135-144); TOTAL PROTEIN 7.3 g/dl (6.1-8.1)
[2018-12-18] MEDS ORDERED: INSULIN GLARGINE [LANTus] (100 UNITS/ML) SYG SC (09:00)
[2018-12-18] MEDS: GABAPENTIN 300 MG CAP PO ×3 (09:00→22:12)
[2018-12-18] MEDS: BENAZEPRIL 10 MG TAB PO ×2 (09:00→21:00)
[2018-12-18] MEDS: PROPOFOL 40 ML (16:15)
[2018-12-18] MEDS: ASPIRIN (EC) 81 MG TAB PO (17:44)
[2018-12-18] MEDS: DICLOFENAC (EC) 75 MG TAB PO ×2 (17:44→22:12)
[2018-12-18] MEDS: INSULIN GLARGINE [LANTus] (100 UNITS/ML) SYG SC ×2 (20:00→23:50)
[2018-12-19] MEDS: ACCU-CHEK XX (02:59)
[2018-12-19] MEDS: PANTOPRAZOLE (EC) 40 MG TAB PO (05:31)
[2018-12-19 06:12] LABS: ADD MAN DIFF? NO
[2018-12-19 06:17] LABS: BASOPHIL # 0.1 10^3/ul (0.0-0.1); BASOPHILS % 1.8 % (0.0-2.0); EOSINOPHILS # 0.2 10^3/ul (0.0-0.5); EOSINOPHILS % 3.1 % (0.0-7.0); HEMATOCRIT 34.2 % (42.0-52.0); HEMOGLOBIN 10.9 g/dl (14.0-18.0); LYMPHOCYTES # 1.5 10^3/ul (0.8-2.9); LYMPHOCYTES % 21.7 % (15.0-51.0); MEAN CORPUSCULAR HEMOGLOBIN 29.2 pg (29.0-33.0); MEAN CORPUSCULAR HGB CONC 31.9 g/dl (32.0-37.0); MEAN CORPUSCULAR VOLUME 91.7 fl (82.0-101.0); MEAN PLATELET VOLUME 9.1 fl (7.4-10.4); MONOCYTE # 0.6 10^3/ul (0.3-0.9); MONOCYTES % 8.6 % (0.0-11.0); NEUTROPHIL # 4.4 10^3/ul (1.6-7.5); NEUTROPHILS % 62.5 % (39.0-77.0); PLATELET COUNT 523 10^3/UL (140-415); RED BLOOD COUNT 3.73 10^6/ul (4.70-6.10); RED CELL DISTRIBUTION WIDTH 15.1 % (11.5-14.5)
[2018-12-19 06:17] LABS: WHITE BLOOD COUNT 7.1 10^3/ul (4.8-10.8)
[2018-12-19 07:04] LABS: PHOSPHORUS 4.3 mg/dl (2.5-4.9)
[2018-12-19 07:04] LABS: MAGNESIUM 1.9 mg/dl (1.7-2.5)
[2018-12-19 07:07] LABS: ALANINE AMINOTRANSFERASE 228 IU/L (13-69); ALBUMIN 3.3 g/dl (3.3-4.9); ALKALINE PHOSPHATASE 567 IU/L (42-121); ANION GAP 4 (5-13); ASPARTATE AMINO TRANSFERASE 68 IU/L (15-46); BILIRUBIN,INDIRECT 0.7 mg/dl (0-1.1); BILIRUBIN,TOTAL 0.7 mg/dl (0.2-1.3); BLOOD UREA NITROGEN 19 mg/dl (7-20); CALCIUM 8.9 mg/dl (8.4-10.2); CARBON DIOXIDE 31 mmol/L (21-31); CHLORIDE 97 mmol/L (97-110); CREATININE 0.84 mg/dl (0.61-1.24); Estimated GFR > 60 mL/min (>60); GLUCOSE 250 mg/dl (70-220); SODIUM 132 mmol/L (135-144); TOTAL PROTEIN 6.6 g/dl (6.1-8.1)
[2018-12-19] MEDS: INSULIN ASPART [NOVOLOG] 3 ML PEN SC ×7 (08:11→20:51)
[2018-12-19 08:12] LABS: CARCINOEMBRYONIC ANTIGEN 1.3 ng/ml (0.0-5.0)
[2018-12-19] MEDS: INSULIN GLARGINE [LANTus] (100 UNITS/ML) SYG SC (08:12)
[2018-12-19] MEDS: GABAPENTIN 300 MG CAP PO ×3 (08:13→20:52)
[2018-12-19 08:16] LABS: CANCER ANTIGEN 19-9 46.9 U/ml (0.0-37.0)
[2018-12-19] MEDS: ASPIRIN (EC) 81 MG TAB PO (08:17)
[2018-12-19] MEDS: DICLOFENAC (EC) 75 MG TAB PO ×2 (08:17→20:52)
[2018-12-19] MEDS: BENAZEPRIL 10 MG TAB PO ×2 (08:18→20:43)
[2018-12-19] MEDS: MEROPENEM 1 GM/50ML(PMX) 50 ML IVPB ×2 (11:24→23:36)
[2018-12-20] MEDS: ACCU-CHEK XX (01:57)
[2018-12-20] MEDS: PANTOPRAZOLE (EC) 40 MG TAB PO (05:44)
[2018-12-20 06:37] LABS: ADD MAN DIFF? NO
[2018-12-20 06:46] LABS: WHITE BLOOD COUNT 6.8 10^3/ul (4.8-10.8)
[2018-12-20 06:46] LABS: BASOPHIL # 0.2 10^3/ul (0.0-0.1); BASOPHILS % 2.2 % (0.0-2.0); EOSINOPHILS # 0.3 10^3/ul (0.0-0.5); EOSINOPHILS % 4.7 % (0.0-7.0); HEMATOCRIT 33.5 % (42.0-52.0); HEMOGLOBIN 10.7 g/dl (14.0-18.0); LYMPHOCYTES # 2.2 10^3/ul (0.8-2.9); LYMPHOCYTES % 32.9 % (15.0-51.0); MEAN CORPUSCULAR HEMOGLOBIN 29.6 pg (29.0-33.0); MEAN CORPUSCULAR HGB CONC 31.9 g/dl (32.0-37.0); MEAN CORPUSCULAR VOLUME 92.8 fl (82.0-101.0); MEAN PLATELET VOLUME 9.2 fl (7.4-10.4); MONOCYTE # 0.7 10^3/ul (0.3-0.9); MONOCYTES % 9.6 % (0.0-11.0); NEUTROPHIL # 3.3 10^3/ul (1.6-7.5); NEUTROPHILS % 49.1 % (39.0-77.0); PLATELET COUNT 537 10^3/UL (140-415); RED BLOOD COUNT 3.61 10^6/ul (4.70-6.10); RED CELL DISTRIBUTION WIDTH 14.6 % (11.5-14.5)
[2018-12-20 07:14] LABS: ANION GAP 6 (5-13); BLOOD UREA NITROGEN 14 mg/dl (7-20); CARBON DIOXIDE 30 mmol/L (21-31); CHLORIDE 99 mmol/L (97-110); CREATININE 0.79 mg/dl (0.61-1.24); Estimated GFR > 60 mL/min (>60); GLUCOSE 146 mg/dl (70-220); POTASSIUM 4.3 mmol/L (3.5-5.1); SODIUM 135 mmol/L (135-144)
[2018-12-20] MEDS: GABAPENTIN 300 MG CAP PO ×2 (08:39→12:03)
[2018-12-20] MEDS: ASPIRIN (EC) 81 MG TAB PO (08:39)
[2018-12-20] MEDS: INSULIN GLARGINE [LANTus] (100 UNITS/ML) SYG SC (08:40)
[2018-12-20] MEDS: INSULIN ASPART [NOVOLOG] 3 ML PEN SC ×6 (08:41→17:21)
[2018-12-20] MEDS: BENAZEPRIL 10 MG TAB PO (08:42)
[2018-12-20] MEDS: DICLOFENAC (EC) 75 MG TAB PO (08:44)
[2018-12-20] MEDS: MEROPENEM 1 GM/50ML(PMX) 50 ML IVPB (10:41)
== END 2018-12-20 17:43 | disposition home or self-care (01) | DRG 438 ==
LOC: E/R 06:33 → PP2 08:46
PROC: 0DB98ZX Excision of Duodenum, Via Natural or Artificial Opening Endoscopic, Diagnostic (ICD-10-PCS; principal; 2018-12-13 16:00)
PROC: 0DB98ZX Excision of Duodenum, Via Natural or Artificial Opening Endoscopic, Diagnostic (ICD-10-PCS; 2018-12-13 17:42)
DX: K85.21 Alcohol induced acute pancreatitis with uninfected necrosis (principal); K83.1 Obstruction of bile duct; E87.1 Hypo-osmolality and hyponatremia; E66.9 Obesity, unspecified; E11.8 Type 2 diabetes mellitus with unspecified complications; I10 Essential (primary) hypertension; E78.5 Hyperlipidemia, unspecified; M19.90 Unspecified osteoarthritis, unspecified site; F10.20 Alcohol dependence, uncomplicated; Z68.33 Body mass index [BMI] 33.0-33.9, adult; R74.0 Nonspecific elevation of levels of transaminase and lactic acid dehydrogenase [LDH]; D73.5 Infarction of spleen; K57.30 Diverticulosis of large intestine without perforation or abscess without bleeding; K40.90 Unilateral inguinal hernia, without obstruction or gangrene, not specified as recurrent; K29.70 Gastritis, unspecified, without bleeding; R10.9 Unspecified abdominal pain; E83.51 Hypocalcemia; K70.9 Alcoholic liver disease, unspecified; E11.9 Type 2 diabetes mellitus without complications
CPT/HCPCS: 36415; 71046; 74177; 74181; 74330; 76705; 80048; 80053; 80061; 80076; 82150; 82378; 82787; 82947; 82962; 83036; 83690; 83735; 84100; 84436; 84443; 84479; 85025; 85610; 85730; 86038; 86255; 86301; 86704; 86706; 86709; 86803; 87340; 88305; 93005; 96374; 96375; 96376; 99285-25

== ENCOUNTER 2019-01-26 01:40 | Emergency (ER) | payer OTHER ==
[2019-01-26] MEDS: FAMOTIDINE 20 MG TAB PO (02:16)
[2019-01-26] MEDS: ONDANSETRON 4 MG INJ IV (02:16)
[2019-01-26] MEDS: LIDOCAINE/MYLANTA 40 ML BTL PO (02:16)
[2019-01-26] MEDS: LORAZEPAM 2 MG INJ IV (02:16)
[2019-01-26 02:17] LABS: ADD MAN DIFF? NO
[2019-01-26] MEDS: BELLADONNA/PHENOBARBITAL TAB PO (02:17)
[2019-01-26] MEDS: SOD CHLORIDE 0.9% 1,000 ML IV (02:17)
[2019-01-26 02:19] LABS: WHITE BLOOD COUNT 5.4 10^3/ul (4.8-10.8)
[2019-01-26 02:19] LABS: BASOPHIL # 0.1 10^3/ul (0.0-0.1); BASOPHILS % 1.1 % (0.0-2.0); EOSINOPHILS # 0.1 10^3/ul (0.0-0.5); EOSINOPHILS % 1.3 % (0.0-7.0); HEMATOCRIT 40.2 % (42.0-52.0); HEMOGLOBIN 13.6 g/dl (14.0-18.0); LYMPHOCYTES # 1.5 10^3/ul (0.8-2.9); LYMPHOCYTES % 27.4 % (15.0-51.0); MEAN CORPUSCULAR HEMOGLOBIN 29.1 pg (29.0-33.0); MEAN CORPUSCULAR HGB CONC 33.8 g/dl (32.0-37.0); MEAN CORPUSCULAR VOLUME 86.1 fl (82.0-101.0); MEAN PLATELET VOLUME 9.1 fl (7.4-10.4); MONOCYTE # 0.4 10^3/ul (0.3-0.9); MONOCYTES % 6.9 % (0.0-11.0); NEUTROPHIL # 3.4 10^3/ul (1.6-7.5); NEUTROPHILS % 63.1 % (39.0-77.0); PLATELET COUNT 248 10^3/UL (140-415); RED BLOOD COUNT 4.67 10^6/ul (4.70-6.10); RED CELL DISTRIBUTION WIDTH 13.7 % (11.5-14.5)
[2019-01-26 02:35] LABS: ALANINE AMINOTRANSFERASE 76 IU/L (13-69); ALBUMIN 4.6 g/dl (3.3-4.9); ALBUMIN/GLOBULIN RATIO 1.31; ALKALINE PHOSPHATASE 147 IU/L (42-121); ANION GAP 20 (5-13); ASPARTATE AMINO TRANSFERASE 60 IU/L (15-46); BILIRUBIN,INDIRECT 0.4 mg/dl (0-1.1); BILIRUBIN,TOTAL 0.4 mg/dl (0.2-1.3); BLOOD UREA NITROGEN 9 mg/dl (7-20); CALCIUM 9.1 mg/dl (8.4-10.2); CARBON DIOXIDE 21 mmol/L (21-31); CHLORIDE 91 mmol/L (97-110); CREATININE 0.76 mg/dl (0.61-1.24); Estimated GFR > 60 mL/min (>60); GLUCOSE 333 mg/dl (70-220); LIPASE 52 U/L (23-300); POTASSIUM 3.9 mmol/L (3.5-5.1); SODIUM 132 mmol/L (135-144); TOTAL PROTEIN 8.1 g/dl (6.1-8.1)
[2019-01-26] MEDS: THIAMINE 100 MG TAB PO (02:41)
[2019-01-26] MEDS: FOLIC ACID 1 MG TAB PO (02:41)
== END 2019-01-26 05:42 | disposition home or self-care (01) ==
LOC: E/R 01:40
DX: F10.230 Alcohol dependence with withdrawal, uncomplicated (principal); K29.20 Alcoholic gastritis without bleeding; E11.9 Type 2 diabetes mellitus without complications; I10 Essential (primary) hypertension; Z79.82 Long term (current) use of aspirin; Z79.4 Long term (current) use of insulin
CPT/HCPCS: 36415; 80053; 82962; 83690; 85025; 96374; 96375; 99284-25